=== PATIENT | female | born 1940 | race Caucasian/White ===

== ENCOUNTER 2020-01-11 15:52 | Emergency (ER) | payer MEDICARE, BC ==
[2020-01-11 16:07] VITALS: BP 149/78; PULSE 78
--- NOTE | 2020-01-11 17:02 | CT ---
Head CT Technique: Multiple axial sections through the brain were obtained. Intravenous contrast was not utilized. Comparison: No previous intracranial imaging is available. Findings: Ventricles along with basal cisterns and sulci over the convexities are moderately prominent. Mild atherosclerotic calcification is seen within the carotid siphon. No abnormal parenchymal densities are seen. No evidence of intracranial hemorrhage. No midline shift or mass-effect is seen. Bone window settings were reviewed. Visualized paranasal sinuses and mastoid sinuses show nothing acute. No acute calvarial finding is appreciated. Impression: 1. Generalized atrophy. 2. Nothing acute is appreciated on noncontrast head CT exam. Diagnostic code #2 This report was dictated in MDT
[2020-01-11 17:45] LABS: ACETAMINOPHEN 0 ug/mL (10-30)
--- NOTE | 2020-01-11 18:17 | EDM.PDOCBH ---
ED HPI GENERAL MEDICAL PROBLEM - General Chief Complaint: Behavioral/Psych Stated Complaint: MENTAL HEALTH EVALUATION Time Seen by Provider: 01/11/20 15:55 Source of Information: Reports: Patient, Family, Provider History Limitations: Reports: No Limitations - History of Present Illness INITIAL COMMENTS - FREE TEXT/NARRATIVE: The patient presents from Dr Owen's office with her family. She has been having auditory hallucinations. This has been going on for years. She says they are negative but do not tell her to kill herself or anyone else. She also has been paranoid and thinking hairdressers and doctors put things in her head and body so she avoids them. Dr Owen says she is very intelligent and will hide this. The patient did admit to the auditory hallucinations. She also has been getting in some fights with her and locked him out of the house at times. All of her children are in town and they think she needs help. Dr Owen did paperwork to have her come over here. She denies a headache, fever, chills, cough, congestion, runny nose, chest pain, shortness of breath, abdominal pain, nausea or vomiting. She denies depression or anxiety. Onset: Gradual Duration: Week(s): Severity: Moderate Improves with: Reports: None Worsens with: Reports: None Associated Symptoms: Reports: No Other Symptoms - Related Data Allergies Allergy/AdvReac Type Severity Reaction Status Date / Time Penicillins Allergy Rash Verified 01/11/20 16:23 Past Medical History HEENT History: Reports: Impaired Vision Social & Family History - Tobacco Use Smoking Status *Q: Never Smoker ED ROS GENERAL - Review of Systems Review Of Systems: See Below Constitutional: Reports: No Symptoms HEENT: Reports: No Symptoms Respiratory: Reports: No Symptoms Cardiovascular: Reports: No Symptoms Endocrine: Reports: No Symptoms GI/Abdominal: Reports: No Symptoms : Reports: No Symptoms Musculoskeletal: Reports: No Symptoms Skin: Reports: No Symptoms Neurological: Reports: No Symptoms Psychiatric: Reports: Hallucinations ED EXAM, BEHAVIORAL HEALTH - Physical Exam Exam: See Below Exam Limited By: No Limitations General Appearance: Alert, No Apparent Distress Ears: Normal External Exam Nose: Normal Inspection Head: Atraumatic, Normocephalic Neck: Normal Inspection Respiratory/Chest: No Respiratory Distress, Lungs Clear, Normal Breath Sounds Cardiovascular: Regular Rate, Rhythm, No Edema, No Murmur GI/Abdominal: Soft, Non-Tender, No Organomegaly, No Mass Back Exam: Normal Inspection Extremities: Normal Inspection Neurological: Alert, No Motor/Sensory Deficits, Oriented x 3 COURSE, BEHAVIORAL HEALTH COMP - Course Vital Signs: Last Vital Signs Temp 98.3 F 01/11/20 16:06 Pulse 78 01/11/20 16:06 Resp 18 01/11/20 16:06 BP 149/78 H 01/11/20 16:06 Pulse Ox 97 01/11/20 16:06 Orders, Labs, Meds: Active Orders 24 hr Category Date Time Status Cardiac Monitoring [RC] . DIRECTED Care 01/11/20 16:20 Active Laboratory Tests 01/11/20 01/11/20 01/11/20 Range/Units 16:45 16:45 16:45 WBC 7.56 (3.98-10.04) K/mm3 RBC 4.15 (3.98-5.22) M/mm3 Hgb 13.6 (11.2-15.7) gm/dl Hct 40.6 (34.1-44.9) % MCV 97.8 H D (79.4-94.8) fl MCH 32.8 H (25.6-32.2) pg MCHC 33.5 (32.2-35.5) g/dl RDW Std Deviation 46.1 (36.4-46.3) fL Plt Count 241 (182-369) K/mm3 MPV 10.6 (9.4-12.3) fl Neut % (Auto) 66.1 (34.0-71.1) % Lymph % (Auto) 24.1 (19.3-51.7) % [place] % (Auto) 8.7 (4.7-12.5) % Eos % (Auto) 0.7 (0.7-5.8) Baso % (Auto) 0.3 (0.1-1.2) % Neut # (Auto) 5.00 (1.56-6.13) K/mm3 Lymph # (Auto) 1.82 (1.18-3.74) K/mm3 [place] # (Auto) 0.66 H (0.24-0.36) K/mm3 Eos # (Auto) 0.05 (0.04-0.36) K/mm3 Baso # (Auto) 0.02 (0.01-0.08) K/mm3 Sodium 138 (136-145) mEq/L Potassium 4.3 (3.5-5.1) mEq/L Chloride 103 (98-107) mEq/L Carbon Dioxide 26 (21-32) mEq/L Anion Gap 13.3 (5-15) BUN 27 H (7-18) mg/dL Creatinine 0.8 (0.55-1.02) mg/dL Est Cr Clr Drug Dosing 45.84 mL/min Estimated GFR (MDRD) > 60 (>60) mL/min BUN/Creatinine Ratio 33.8 H (14-18) Glucose 94 (83-115) mg/dL Calcium 8.7 (8.5-10.1) mg/dL Total Bilirubin 0.4 (0.2-1.0) mg/dL AST 18 (15-37) U/L ALT 27 (14-59) U/L Alkaline Phosphatase 56 (46-116) U/L Total Protein 6.5 (6.4-8.2) g/dl Albumin 3.5 (3.4-5.0) g/dl Globulin 3.0 gm/dL Albumin/Globulin Ratio 1.2 (1-2) TSH 3rd Generation 2.279 (0.358-3.74) uIU/mL Urine Color (Yellow) Urine Appearance (Clear) Urine pH (5.0-8.0) Ur Specific [place] (1.005-1.030) Urine Protein (Negative) Urine Glucose (UA) (Negative) Urine Ketones (Negative) Urine Occult Blood (Negative) Urine Nitrite (Negative) Urine Bilirubin (Negative) Urine Urobilinogen (0.2-1.0) Ur Leukocyte Esterase (Negative) Urine RBC (0-5) /hpf Urine WBC (0-5) /hpf Ur Squamous Epith Cells (0-5) /hpf Urine Bacteria (FEW) /hpf Urine Mucus (FEW) /hpf Salicylates 1.6 L (2.8-20) mg/dL Urine Opiates Screen (OAQJSD=203) Ur Buprenorphine Scrn (CUTOFF=10) Ur Oxycodone Screen (TOE0IQ=518) Urine Methadone Screen (HCKYBW=861) Ur Propoxyphene Screen (RRYCDX=975) Acetaminophen 0 L (10-30) ug/mL Ur Barbiturates Screen (CAOFKM=202) Ur Tricyclics Screen (RCWODR=436) Ur Phencyclidine Scrn (CUTOFF=25) Ur Amphetamine Screen (MSXEKU=614) U Methamphetamines Scrn (WZDRAU=370) U Benzodiazepines Scrn (OGTJIF=295) U Cocaine Metab Screen (JUMXUK=315) U Marijuana (THC) Screen (CUTOFF=50) Ethyl Alcohol 0.00 (0.00) gm% COVID-19 (MARYURI) (NEGATIVE) 01/11/20 01/11/20 01/11/20 Range/Units 16:55 16:55 17:05 WBC (3.98-10.04) K/mm3 RBC (3.98-5.22) M/mm3 Hgb (11.2-15.7) gm/dl Hct (34.1-44.9) % MCV (79.4-94.8) fl MCH (25.6-32.2) pg MCHC (32.2-35.5) g/dl RDW Std Deviation (36.4-46.3) fL Plt Count (182-369) K/mm3 MPV (9.4-12.3) fl Neut % (Auto) (34.0-71.1) % Lymph % (Auto) (19.3-51.7) % [place] % (Auto) (4.7-12.5) % Eos % (Auto) (0.7-5.8) Baso % (Auto) (0.1-1.2) % Neut # (Auto) (1.56-6.13) K/mm3 Lymph # (Auto) (1.18-3.74) K/mm3 [place] # (Auto) (0.24-0.36) K/mm3 Eos # (Auto) (0.04-0.36) K/mm3 Baso # (Auto) (0.01-0.08) K/mm3 Sodium (136-145) mEq/L Potassium (3.5-5.1) mEq/L Chloride (98-107) mEq/L Carbon Dioxide (21-32) mEq/L Anion Gap (5-15) BUN (7-18) mg/dL Creatinine (0.55-1.02) mg/dL Est Cr Clr Drug Dosing mL/min Estimated GFR (MDRD) (>60) mL/min BUN/Creatinine Ratio (14-18) Glucose (83-115) mg/dL Calcium (8.5-10.1) mg/dL Total Bilirubin (0.2-1.0) mg/dL AST (15-37) U/L ALT (14-59) U/L Alkaline Phosphatase (46-116) U/L Total Protein (6.4-8.2) g/dl Albumin (3.4-5.0) g/dl Globulin gm/dL Albumin/Globulin Ratio (1-2) TSH 3rd Generation (0.358-3.74) uIU/mL Urine Color Light yellow (Yellow) Urine Appearance Clear (Clear) Urine pH 7.0 (5.0-8.0) Ur Specific [place] 1.015 (1.005-1.030) Urine Protein Negative (Negative) Urine Glucose (UA) Negative (Negative) Urine Ketones Negative (Negative) Urine Occult Blood Trace-intact H (Negative) Urine Nitrite Negative (Negative) Urine Bilirubin Negative (Negative) Urine Urobilinogen 0.2 (0.2-1.0) Ur Leukocyte Esterase Trace H (Negative) Urine RBC 0-5 (0-5) /hpf Urine WBC 0-5 (0-5) /hpf Ur Squamous Epith Cells 0-5 (0-5) /hpf Urine Bacteria Not seen (FEW) /hpf Urine Mucus Not seen (FEW) /hpf Salicylates (2.8-20) mg/dL Urine Opiates Screen Negative (RSKUOS=305) Ur Buprenorphine Scrn Negative (CUTOFF=10) Ur Oxycodone Screen Negative (CRI8OI=500) Urine Methadone Screen Negative (TDVDGK=562) Ur Propoxyphene Screen Negative (OUTOBZ=772) Acetaminophen (10-30) ug/mL Ur Barbiturates Screen Negative (XYURVB=311) Ur Tricyclics Screen Negative (LMVAJU=200) Ur Phencyclidine Scrn Negative (CUTOFF=25) Ur Amphetamine Screen Negative (PQKXVL=393) U Methamphetamines Scrn Negative (EMCTAQ=714) U Benzodiazepines Scrn Negative (AZENQI=705) U Cocaine Metab Screen Negative (JGVZLB=573) U Marijuana (THC) Screen Negative (CUTOFF=50) Ethyl Alcohol (0.00) gm% COVID-19 (MARYURI) Negative (NEGATIVE) Re-Assessment/Re-Exam: I ordered a CT of her head, labs, UDS and UA. The CT of her head shows nothing acute. Her labs all look good. Her UDS is negative. Her ETOH is 0. I called [facility] in [place] and talked with Dr Mcdaniel and he accepted the patient. She will be transported by [facility] deputy. Departure - Departure Time of Disposition: 18:20 Disposition: DC/Tfer to Psych Hosp/Unit [facility] Condition: Fair Clinical Impression: Hallucinations, Paranoid - Discharge Information Referrals: PCP,None [Primary Care Provider] - Sepsis Event Note (ED) - Evaluation Sepsis Screening Result: No Definite Risk - Focused Exam Vital Signs: Vital Signs Temp Pulse Resp BP Pulse Ox 01/11/20 16:06 98.3 F 78 18 149/78 H 97 - My Orders Last 24 Hours: My Active Orders 01/11/20 16:20 Cardiac Monitoring [RC] . DIRECTED - Assessment/Plan Last 24 Hours: My Active Orders 01/11/20 16:20 Cardiac Monitoring [RC] . DIRECTED
== END 2020-01-11 18:54 ==
LOC: JD.ED 15:52
DX: F22 Delusional disorders (principal); Z20.828 Contact with and (suspected) exposure to other viral communicable diseases; Z88.0 Allergy status to penicillin
CPT/HCPCS: 36415; 70450; 80053; 80306; 80307; 81001; 84443; 85025; 99285; U0002; 99284

== ENCOUNTER 2020-10-18 17:36 | Inpatient (IN) | payer MEDICARE, BC ==
[2020-10-18] MEDS ORDERED: Sodium Chloride 0.9% 10 ML Syringe FLUSH PRN (17:55)
[2020-10-18] MEDS ORDERED: Sodium Chloride 0.9% 1,000 ML IV SCH (18:00)
[2020-10-18] MEDS ORDERED: Etomidate 2 MG/ML 20 ML SDV IVPUSH ONE (18:00)
[2020-10-18] MEDS ORDERED: Rocuronium 50 MG/5 ML Vial IVPUSH ONE (18:03)
--- NOTE | 2020-10-18 18:26 | EDM.PDOC ---
ED HPI GENERAL MEDICAL PROBLEM - General Chief Complaint: Neurological Problem Stated Complaint: [facility] Time Seen by Provider: 10/18/20 17:55 Source of Information: Reports: EMS, Family, Police History Limitations: Reports: Altered Mental Status - History of Present Illness INITIAL COMMENTS - FREE TEXT/NARRATIVE: The patient presents by [facility] because she is unresponsive. Police were called to her house for a welfare check. Her family all lives out of town. She last talked to one of her sons last Wednesday. She said she had some neck pain from working in the garage and some fatigue from the heat. She left a message later and said she was sitting in the house nauseated and she had a bucket in case she throws up. Another son tried calling her on Wednesday and she did not responds. According to her children. She recently had a UTI and was being treated for that. She also was complaining her feet were swelling. She was in the [employer] program 2 months ago where they came to her house to check on her. She did not have many health problems. Her daughter said she did have a history of some vaginal bleeding. The patient did come in with some vaginal bleeding. The police found her in the couch leaning on the arm. Police thought she may be and called EMS. When EMS arrived she had aginal breathing and had a pulse. She would not respond. Her GCS was 3. Onset: Gradual Duration: Other (unkown last time heard from was Wednesday) Improves with: Reports: None Worsens with: Reports: None Associated Symptoms: Reports: Other (unable to obtain) - Related Data Allergies Allergy/AdvReac Type Severity Reaction Status Date / Time Penicillins Allergy Rash Verified 01/11/20 16:23 Home Meds: Home Meds . [Unable to Verify Home Med List] 10/18/20 [History] Past Medical History HEENT History: Reports: Impaired Vision ED ROS GENERAL - Review of Systems Review Of Systems: Unable To Obtain Reason Not Obtained: patient unrsponsive ED EXAM, NEURO - Physical Exam Exam: See Below Exam Limited By: Altered Mental Status General Appearance: Obtunded Ears: Normal External Exam Nose: Normal Inspection Head Exam: Atraumatic, Normocephalic Neck: Other (ecchymosis to the posterior neck) Respiratory/Chest: No Respiratory Distress, Lungs Clear, Normal Breath Sounds Cardiovascular: Regular Rate, Rhythm, No Murmur, Other (bilateral leg edema and ecchymosis to the left chest) GI/Abdominal: Normal Bowel Sounds, Soft, Non-Tender, No Organomegaly Neurological: Other (Patient had a GCS of 3. That improved to a 6 before intubation. She would not open her eyes. She had no verbal response. She did withdraw from pain.) Extremities: Other (ecchymosis to her left arm) ED NEURO PROCEDURES - Endotracheal Intubation Time of Intubation: 18:05 ET Intubation Indication: Respiratory Failure, Airway Protection Preparation: Suction, Balloon Tested, BVM Set Up, Difficult Airway Equip Pre-Oxygenation: 100% FiO2 Anesthesia Meds: Etomidate, Rocuronium Placement: Orotracheal, Cuffed, Uncomplicated Placement Cords Visualized: Yes ETT Size In mm: 7.5 Number of Attempts: 1 Confirmed By: CO2 Indicator, Bilateral Breath Sounds Tube Secured By: By RT #1 Interpretation EKG Date: 10/18/20 Time: 18:29 Rhythm: NSR Rate (Beats/Min): 93 [place]: Normal P-Wave: Present QRS: Normal ST-T: Normal QT: Normal Course - Vital Signs Last Recorded V/S: Last Vital Signs Temp 98.2 F 10/18/20 17:40 Pulse 92 10/18/20 18:21 Resp 18 10/18/20 18:21 BP 128/70 10/18/20 18:21 Pulse Ox 99 10/18/20 18:21 - Orders/Labs/Meds Orders: Active Orders 24 hr Category Date Time Status Cardiac Monitoring [RC] . DIRECTED Care 10/18/20 17:55 Active EKG Documentation Completion [RC] STAT Care 10/18/20 17:57 Active Peripheral IV Care [RC] . DIRECTED Care 10/18/20 17:55 Active Vent Setting Change [Ventilator Setting Changes] [RC] Care 10/18/20 18:25 Active ROUTINE CULTURE BLOOD [BC] Stat Lab 10/18/20 18:30 Received CULTURE BLOOD [BC] Stat Lab 10/18/20 18:44 Received Sodium Chloride 0.9% [Normal Saline] 1,000 ml Med 10/18/20 18:00 Active IV .BOLUS Sodium Chloride 0.9% [Saline Flush] Med 10/18/20 17:55 Active 10 ml FLUSH ASDIRECTED PRN Blood Culture x2 Reflex Set [OM.PC] Stat Oth 10/18/20 17:58 Ordered Peripheral IV Insertion Adult [OM.PC] Stat Oth 10/18/20 17:55 Ordered Medication Orders Sodium Chloride (Normal Saline) 1,000 mls @ 1,000 mls/hr IV .BOLUS BINA Last Admin: 10/18/20 18:28 Dose: 1,000 mls/hr Documented by: SUZE Sodium Chloride (Sodium Chloride 0.9% 10 Ml Syringe) 10 ml FLUSH ASDIRECTED PRN PRN Reason: Keep Vein Open Last Admin: 10/18/20 18:28 Dose: 10 ml Documented by: SUZE Labs: Laboratory Tests 10/18/20 10/18/20 10/18/20 Range/Units 17:45 17:50 17:50 WBC 17.71 H (3.98-10.04) K/mm3 RBC 4.71 (3.98-5.22) M/mm3 Hgb 14.9 (11.2-15.7) gm/dl Hct 46.0 H (34.1-44.9) % MCV 97.7 H (79.4-94.8) fl MCH 31.6 (25.6-32.2) pg MCHC 32.4 (32.2-35.5) g/dl RDW Std Deviation 49.8 H (36.4-46.3) fL Plt Count 148 L D (182-369) K/mm3 MPV 10.8 (9.4-12.3) fl Neut % (Auto) 83.4 H (34.0-71.1) % Lymph % (Auto) 6.0 L (19.3-51.7) % Wells % (Auto) 10.1 (4.7-12.5) % Eos % (Auto) 0 L (0.7-5.8) Baso % (Auto) 0.1 (0.1-1.2) % Neut # (Auto) 14.78 H (1.56-6.13) K/mm3 Lymph # (Auto) 1.06 L (1.18-3.74) K/mm3 Wells # (Auto) 1.78 H (0.24-0.36) K/mm3 Eos # (Auto) 0.00 L (0.04-0.36) K/mm3 Baso # (Auto) 0.02 (0.01-0.08) K/mm3 Manual Slide Review Abnormal smear PT 12.6 H (9.7-12.0) SECONDS INR 1.18 APTT 25.4 (21.7-31.4) SECONDS Puncture Site ABG pH (7.35-7.45) ABG pCO2 (35.0-45.0) mmHg ABG pO2 (80.0-100.0) mmHg ABG HCO3 (22.0-26.0) meq/L ABG O2 Saturation (96.0-97.0) % ABG Base Excess (-2-2.0) A-a Gradient mmHg O2 Delivery Device FiO2 (21.00-100.00) % Tidal Volume cc PEEP cmH20 Sodium (136-145) mEq/L Potassium (3.5-5.1) mEq/L Chloride (98-107) mEq/L Carbon Dioxide (21-32) mEq/L Anion Gap (5-15) BUN (7-18) mg/dL Creatinine (0.55-1.02) mg/dL Est Cr Clr Drug Dosing Estimated GFR (MDRD) (>60) mL/min BUN/Creatinine Ratio (14-18) Glucose (70-99) mg/dL Lactic Acid (0.4-2.0) mmol/L Calcium (8.5-10.1) mg/dL Magnesium (1.8-2.4) mg/dL Total Bilirubin (0.2-1.0) mg/dL AST (15-37) U/L ALT (14-59) U/L Alkaline Phosphatase (46-116) U/L Creatine Kinase (26-192) U/L Troponin I (0.00-0.056) ng/mL C-Reactive Protein (<1.0) mg/dL Total Protein (6.4-8.2) g/dl Albumin (3.4-5.0) g/dl Globulin gm/dL Albumin/Globulin Ratio (1-2) Lipase (73-393) U/L TSH 3rd Generation (0.358-3.74) uIU/mL Urine Color (Yellow) Urine Appearance (Clear) Urine pH (5.0-8.0) Ur Specific [place] (1.005-1.030) Urine Protein (Negative) Urine Glucose (UA) (Negative) Urine Ketones (Negative) Urine Occult Blood (Negative) Urine Nitrite (Negative) Urine Bilirubin (Negative) Urine Urobilinogen (0.2-1.0) Ur Leukocyte Esterase (Negative) Urine RBC (0-5) /hpf Urine WBC (0-5) /hpf Ur Squamous Epith Cells (0-5) /hpf Urine Bacteria (FEW) /hpf Urine Mucus (FEW) /hpf Urine Opiates Screen (DKKKYT=166) Ur Buprenorphine Scrn (CUTOFF=10) Ur Oxycodone Screen (NZQ5KJ=803) Urine Methadone Screen (FTQXII=046) Ur Propoxyphene Screen (DARSIA=805) Ur Barbiturates Screen (PROVIB=991) Ur Tricyclics Screen (ZRESXO=252) Ur Phencyclidine Scrn (CUTOFF=25) Ur Amphetamine Screen (PHXYCS=557) U Methamphetamines Scrn (XGRNDA=521) U Benzodiazepines Scrn (ZCNGRP=375) U Cocaine Metab Screen (YLYAVQ=508) U Marijuana (THC) Screen (CUTOFF=50) Ethyl Alcohol (0.00) gm% SARS-CoV-2 RNA (MARYURI) Negative (NEGATIVE) 10/18/20 10/18/20 10/18/20 Range/Units 17:50 17:50 17:50 WBC (3.98-10.04) K/mm3 RBC (3.98-5.22) M/mm3 Hgb (11.2-15.7) gm/dl Hct (34.1-44.9) % MCV (79.4-94.8) fl MCH (25.6-32.2) pg MCHC (32.2-35.5) g/dl RDW Std Deviation (36.4-46.3) fL Plt Count (182-369) K/mm3 MPV (9.4-12.3) fl Neut % (Auto) (34.0-71.1) % Lymph % (Auto) (19.3-51.7) % Wells % (Auto) (4.7-12.5) % Eos % (Auto) (0.7-5.8) Baso % (Auto) (0.1-1.2) % Neut # (Auto) (1.56-6.13) K/mm3 Lymph # (Auto) (1.18-3.74) K/mm3 Wells # (Auto) (0.24-0.36) K/mm3 Eos # (Auto) (0.04-0.36) K/mm3 Baso # (Auto) (0.01-0.08) K/mm3 Manual Slide Review PT (9.7-12.0) SECONDS INR APTT (21.7-31.4) SECONDS Puncture Site ABG pH (7.35-7.45) ABG pCO2 (35.0-45.0) mmHg ABG pO2 (80.0-100.0) mmHg ABG HCO3 (22.0-26.0) meq/L ABG O2 Saturation (96.0-97.0) % ABG Base Excess (-2-2.0) A-a Gradient mmHg O2 Delivery Device FiO2 (21.00-100.00) % Tidal Volume cc PEEP cmH20 Sodium 152 H D (136-145) mEq/L Potassium 4.1 (3.5-5.1) mEq/L Chloride 112 H (98-107) mEq/L Carbon Dioxide 28 (21-32) mEq/L Anion Gap 16.1 H (5-15) BUN 80 H D (7-18) mg/dL Creatinine 1.9 H (0.55-1.02) mg/dL Est Cr Clr Drug Dosing TNP Estimated GFR (MDRD) 26 (>60) mL/min BUN/Creatinine Ratio 42.1 H (14-18) Glucose 115 H (70-99) mg/dL Lactic Acid 2.0 (0.4-2.0) mmol/L Calcium 14.2 H* D (8.5-10.1) mg/dL Magnesium 3.1 H (1.8-2.4) mg/dL Total Bilirubin 0.5 (0.2-1.0) mg/dL AST 29 (15-37) U/L ALT 27 (14-59) U/L Alkaline Phosphatase 88 (46-116) U/L Creatine Kinase 237 H (26-192) U/L Troponin I 0.304 H* (0.00-0.056) ng/mL C-Reactive Protein 6.1 H* (<1.0) mg/dL Total Protein 6.8 (6.4-8.2) g/dl Albumin 3.3 L (3.4-5.0) g/dl Globulin 3.5 gm/dL Albumin/Globulin Ratio 0.9 L (1-2) Lipase 43 L (73-393) U/L TSH 3rd Generation 1.135 (0.358-3.74) uIU/mL Urine Color (Yellow) Urine Appearance (Clear) Urine pH (5.0-8.0) Ur Specific [place] (1.005-1.030) Urine Protein (Negative) Urine Glucose (UA) (Negative) Urine Ketones (Negative) Urine Occult Blood (Negative) Urine Nitrite (Negative) Urine Bilirubin (Negative) Urine Urobilinogen (0.2-1.0) Ur Leukocyte Esterase (Negative) Urine RBC (0-5) /hpf Urine WBC (0-5) /hpf Ur Squamous Epith Cells (0-5) /hpf Urine Bacteria (FEW) /hpf Urine Mucus (FEW) /hpf Urine Opiates Screen Negative (BABPJD=868) Ur Buprenorphine Scrn Negative (CUTOFF=10) Ur Oxycodone Screen Negative (XFD6QZ=946) Urine Methadone Screen Negative (FZEBNF=652) Ur Propoxyphene Screen Negative (VRWKNX=505) Ur Barbiturates Screen Negative (DDFTIF=131) Ur Tricyclics Screen Negative (UZHMSG=512) Ur Phencyclidine Scrn Negative (CUTOFF=25) Ur Amphetamine Screen Negative (SMZFZQ=593) U Methamphetamines Scrn Negative (CNMZTO=636) U Benzodiazepines Scrn Negative (GWWRIC=473) U Cocaine Metab Screen Negative (NQQWSO=320) U Marijuana (THC) Screen Negative (CUTOFF=50) Ethyl Alcohol 0.00 (0.00) gm% SARS-CoV-2 RNA (MARYURI) (NEGATIVE) 10/18/20 10/18/20 Range/Units 17:58 18:52 WBC (3.98-10.04) K/mm3 RBC (3.98-5.22) M/mm3 Hgb (11.2-15.7) gm/dl Hct (34.1-44.9) % MCV (79.4-94.8) fl MCH (25.6-32.2) pg MCHC (32.2-35.5) g/dl RDW Std Deviation (36.4-46.3) fL Plt Count (182-369) K/mm3 MPV (9.4-12.3) fl Neut % (Auto) (34.0-71.1) % Lymph % (Auto) (19.3-51.7) % Wells % (Auto) (4.7-12.5) % Eos % (Auto) (0.7-5.8) Baso % (Auto) (0.1-1.2) % Neut # (Auto) (1.56-6.13) K/mm3 Lymph # (Auto) (1.18-3.74) K/mm3 [place] # (Auto) (0.24-0.36) K/mm3 Eos # (Auto) (0.04-0.36) K/mm3 Baso # (Auto) (0.01-0.08) K/mm3 Manual Slide Review PT (9.7-12.0) SECONDS INR APTT (21.7-31.4) SECONDS Puncture Site Rt radial ABG pH 7.43 (7.35-7.45) ABG pCO2 44.6 (35.0-45.0) mmHg ABG pO2 55.0 L (80.0-100.0) mmHg ABG HCO3 28.8 H (22.0-26.0) meq/L ABG O2 Saturation 87.9 L (96.0-97.0) % ABG Base Excess 4.2 H (-2-2.0) A-a Gradient 210 mmHg O2 Delivery Device Ventilator FiO2 45.00 (21.00-100.00) % Tidal Volume 450.0 cc PEEP 5.0 cmH20 Sodium (136-145) mEq/L Potassium (3.5-5.1) mEq/L Chloride (98-107) mEq/L Carbon Dioxide (21-32) mEq/L Anion Gap (5-15) BUN (7-18) mg/dL Creatinine (0.55-1.02) mg/dL Est Cr Clr Drug Dosing Estimated GFR (MDRD) (>60) mL/min BUN/Creatinine Ratio (14-18) Glucose (70-99) mg/dL Lactic Acid (0.4-2.0) mmol/L Calcium (8.5-10.1) mg/dL Magnesium (1.8-2.4) mg/dL Total Bilirubin (0.2-1.0) mg/dL AST (15-37) U/L ALT (14-59) U/L Alkaline Phosphatase (46-116) U/L Creatine Kinase (26-192) U/L Troponin I (0.00-0.056) ng/mL C-Reactive Protein (<1.0) mg/dL Total Protein (6.4-8.2) g/dl Albumin (3.4-5.0) g/dl Globulin gm/dL Albumin/Globulin Ratio (1-2) Lipase (73-393) U/L TSH 3rd Generation (0.358-3.74) uIU/mL Urine Color Yellow (Yellow) Urine Appearance Clear (Clear) Urine pH 6.0 (5.0-8.0) Ur Specific [place] > or = 1.030 (1.005-1.030) Urine Protein 1+ H (Negative) Urine Glucose (UA) Negative (Negative) Urine Ketones Negative (Negative) Urine Occult Blood 2+ H (Negative) Urine Nitrite Positive H (Negative) Urine Bilirubin Negative (Negative) Urine Urobilinogen 0.2 (0.2-1.0) Ur Leukocyte Esterase 1+ H (Negative) Urine RBC 5-10 H (0-5) /hpf Urine WBC 20-30 H (0-5) /hpf Ur Squamous Epith Cells 0-5 (0-5) /hpf Urine Bacteria Moderate H (FEW) /hpf Urine Mucus Not seen (FEW) /hpf Urine Opiates Screen (EBIKNI=894) Ur Buprenorphine Scrn (CUTOFF=10) Ur Oxycodone Screen (UQU3LG=016) Urine Methadone Screen (WEEPIC=034) Ur Propoxyphene Screen (EPEGQH=497) Ur Barbiturates Screen (GDDWEP=019) Ur Tricyclics Screen (MNPZLS=780) Ur Phencyclidine Scrn (CUTOFF=25) Ur Amphetamine Screen (HYPWVR=353) U Methamphetamines Scrn (TZESRW=765) U Benzodiazepines Scrn (UAGDSC=816) U Cocaine Metab Screen (MZQSPH=553) U Marijuana (THC) Screen (CUTOFF=50) Ethyl Alcohol (0.00) gm% SARS-CoV-2 RNA (MARYURI) (NEGATIVE) Meds: Medications Generic Name Dose Route Start Last Admin Trade Name Freq PRN Reason Stop Dose Admin Sodium Chloride 1,000 mls @ 1,000 mls/hr 10/18/20 18:00 10/18/20 18:28 Normal Saline IV 1,000 mls/hr .BOLUS BINA Administration Sodium Chloride 10 ml 10/18/20 17:55 10/18/20 18:28 Sodium Chloride 0.9% 10 Ml Syringe FLUSH 10 ml ASDIRECTED PRN Administration Keep Vein Open Discontinued Medications Generic Name Dose Route Start Last Admin Trade Name Arabella PRN Reason Stop Dose Admin Etomidate 25 mg 10/18/20 18:00 10/18/20 18:27 Etomidate 2 Mg/Ml 20 Ml Sdv IVPUSH 10/18/20 18:01 25 mg ONETIME ONE Administration Ceftriaxone Sodium 2 gm/ 100 mls @ 200 mls/hr 10/18/20 19:06 Sodium Chloride IV 10/18/20 19:35 ONETIME ONE Rocuronium [place] 70 mg 10/18/20 18:03 10/18/20 18:28 Rocuronium 50 Mg/5 Ml Vial IVPUSH 10/18/20 18:04 70 mg ONETIME ONE Administration - Re-Assessments/Exams Free Text/Narrative Re-Assessment/Exam: 10/18/20 18:41 I elected to intubate the patient. She had a slow respiratory rate and unr esponsive. I had my nurse put in an IV and give NS at 1L. I also ordered labs, CXR, CT of her head, chest, abdomen and pelvis. I also ordered a UA. I used etomidate and rocuronium for intubation. I was able to intubate without any problems. CXR confirmed the placement along with lung sounds and CO2 detector. 10/18/20 19:44 I called her 3 children right away to update and throughout her stay. I talked with Kaylin Rice and Lamine. Her WBC was elevated at 17.71. Her platelets were low at 148. Her pO2 was low at 55. I upped her FIO2. Her Na was elevated at 152. Her anion gap was e levated at 16.1. Her creatinine is elevated at 1.9. Her lactic acid was normal at 2. Her calcium was elevated at 14.2. Her magnesium is elevated at 3.1. Her CK is elevated at 237. Her troponin is elevated at 0.304. Her CRP is elevated at 6.1. Her lipase is low at 43. Her TSH is normal. Her UA shows a UTI. Her CT of her head shows a large acute hemorrhage within the posterior fossa measuring up to 3.7cm in size. This is felt to cause compression upon the fourth ventricle and hydrocephalus of the lateral and third ventricles. Small amount of blood is also noted which descends anterior to the cervical cord. Diminished density along the lateral ventricles most likely relating to edema from the hydrocephalus. The CT of her chest shows ET tube and nasogastric tube which are felt to be satisfactory in position. Focal consolidation within the left lung base which could represent an area of pneumonia. Nodular densities within both sides of the chest, more numerous on the right side which are noncalcified. These are suspicious for possible metastatic nodules. The CT of her abdomen and pelvis shows enlarged uterus with prominent low density center which is abnormal. Difficult to exclude neoplasm. I sent the images to [facility] and I talked with Dr Shirley the neurosurgeon transmission assembler. He said there is nothing surgical he can do for her. She is going to from the head bleed. I called all three of her children and notified them. They wanted me to keep her on the ventilator until they can get up here and then remove the tube. I called Dr Latham our hospitalist and he agreed to the admission for comfort care. Departure - Departure Time of Disposition: 20:00 Disposition: Admitted As Inpatient 67 Condition: Serious Clinical Impression: Intracranial bleed, Pulmonary nodules, Enlarged uterus Respiratory failure Qualifiers: Chronicity: acute Respiratory failure complication: hypoxia Qualified Code(s): J96.01 - Acute respiratory failure with hypoxia UTI (urinary tract infection) Qualifiers: Urinary tract infection type: acute cystitis Hematuria presence: without hematuria Qualified Code(s): N30.00 - Acute cystitis without hematuria Pneumonia Qualifiers: Pneumonia type: due to unspecified organism Laterality: left Lung location: lower lobe of lung Qualified Code(s): J18.9 - Pneumonia, unspecified organism - Discharge Information Forms: ED Department Discharge Sepsis Event Note (ED) - Focused Exam Vital Signs: Vital Signs Temp Pulse Resp BP Pulse Ox 10/18/20 18:21 92 18 128/70 99 10/18/20 17:52 89 18 76/52 L 99 10/18/20 17:40 98.2 F 80 12 121/109 H 100 - My Orders Last 24 Hours: My Active Orders 10/18/20 17:55 Cardiac Monitoring [RC] . DIRECTED Peripheral IV Care [RC] . DIRECTED Sodium Chloride 0.9% [Saline Flush] 10 ml FLUSH ASDIRECTED PRN Peripheral IV Insertion Adult [OM.PC] Stat 10/18/20 17:57 EKG Documentation Completion [RC] STAT 10/18/20 17:58 Blood Culture x2 Reflex Set [OM.PC] Stat 10/18/20 18:00 Sodium Chloride 0.9% [Normal Saline] 1,000 ml IV .BOLUS 10/18/20 18:25 Vent Setting Change [Ventilator Setting Changes] [RC] ROUTINE 10/18/20 18:30 CULTURE BLOOD [BC] Stat 10/18/20 18:44 CULTURE BLOOD [BC] Stat - Assessment/Plan Last 24 Hours: My Active Orders 10/18/20 17:55 Cardiac Monitoring [RC] . DIRECTED Peripheral IV Care [RC] . DIRECTED Sodium Chloride 0.9% [Saline Flush] 10 ml FLUSH ASDIRECTED PRN Peripheral IV Insertion Adult [OM.PC] Stat 10/18/20 17:57 EKG Documentation Completion [RC] STAT 10/18/20 17:58 Blood Culture x2 Reflex Set [OM.PC] Stat 10/18/20 18:00 Sodium Chloride 0.9% [Normal Saline] 1,000 ml IV .BOLUS 10/18/20 18:25 Vent Setting Change [Ventilator Setting Changes] [RC] ROUTINE 10/18/20 18:30 CULTURE BLOOD [BC] Stat 10/18/20 18:44 CULTURE BLOOD [BC] Stat
--- NOTE | 2020-10-18 18:42 | CR ---
Chest: Portable supine view of the chest was obtained. Study is obtained for tube placement. Comparison: No previous chest imaging is available. Tip of endotracheal tube is difficult to see with certainty on this study but appears to lie above the corin by around 1.7 cm. Nasogastric tube courses through the mediastinum with tip lying within the stomach. Other portions of the exam are somewhat suboptimal in technique and no further comment can be made. Impression: 1. Tip of endotracheal tube difficult to see but most likely above the corin by about 1.7 cm. 2. Satisfactory position of nasogastric tube. Diagnostic code #2
--- NOTE | 2020-10-18 18:51 | CT ---
Head CT Technique: Multiple axial sections through the brain were obtained. Intravenous contrast was not utilized. Reconstructed coronal and sagittal images were obtained. Comparison: No prior intracranial imaging is available. Findings: Large acute hemorrhage is seen within the posterior fossa. This hemorrhage measures approximately 3.7 cm in size. This abnormality compresses the fourth ventricle causing proximal hydronephrosis of the lateral ventricles and third ventricle. There is also blood being seen which descends anterior to the upper cervical cord. Diffuse diminished density is noted within the periventricular white matter which may relate to edema from the hydrocephalus. No midline shift is seen. Bone window settings were reviewed and show no acute calvarial abnormality. Visualized mastoid sinuses and paranasal sinuses show nothing acute. Impression: 1. Large acute hemorrhage within the posterior fossa measuring up to 3.7 cm in size. This is felt to cause compression upon the fourth ventricle and hydrocephalus of the lateral and third ventricles. 2. Small amount of blood is also noted which descends anterior to the cervical cord. 3. Diminished density along the lateral ventricles most likely relating to edema from the hydrocephalus. Diagnostic code #5
--- NOTE | 2020-10-18 19:03 | CT ---
CT chest Technique: Multiple axial sections through the chest were obtained. Intravenous contrast was not utilized. Comparison: No prior chest CT study is available. Findings: Endotracheal tube is seen. Tip terminates slightly above the corin. Nasogastric tube courses through the mediastinum into the stomach. Thoracic aorta shows atherosclerotic calcification without aneurysm. Mediastinum and hilar regions show no adenopathy or mass. Mild coronary artery calcification is noted. Focal consolidation is seen within the left lung base. Several scattered nodular densities are seen within the right lung which do not appear to be calcified. Several small nodules are partially seen within the left chest. These nodules are suspicious for possible metastatic disease. Largest nodule measures approximately 1.2 cm. Bone window setting shows slight degenerative change scattered within the spine. No acute osseous abnormality is appreciated. Impression: 1. Endotracheal tube and nasogastric tube which are felt to be satisfactory in position. 2. Focal consolidation within the left lung base which could represent an area of pneumonia. 3. Nodular densities within both sides of the chest, more numerous on the right side which are noncalcified. These are suspicious for possible metastatic nodules. Diagnostic code #9 CT abdomen and pelvis Technique: Multiple axial sections were obtained from above the dome of the diaphragm inferiorly through the pubic symphysis. Intravenous and oral contrast was not utilized. Reconstructed coronal and sagittal images were obtained. Comparison: No previous abdomen and pelvis CT is available. Findings: Gallbladder is located inferior to the liver if it has not been removed. Liver otherwise shows no focal abnormality. Spleen size is normal. Pancreas shows no discrete abnormality. Kidneys show no abnormal calcifications. Small cyst is noted within the left kidney measuring 1.3 cm. Abdominal aorta shows atherosclerotic change without aneurysm. No retroperitoneal adenopathy is seen. No mesenteric abnormalities are seen. Uterus is enlarged with prominent low density center. Difficult to exclude neoplasm within the uterus. Glynn catheter is noted within the bladder. No pelvic mass or adenopathy is seen. Appendix is not visualized. Bone window setting shows scattered degenerative change within the spine. Mild degenerative change is also seen within both hips. Impression: 1. Enlarged uterus with prominent low density center which is abnormal. Difficult to exclude neoplasm. 2. Other findings as noted above which are likely incidental. Diagnostic code #9
[2020-10-18] MEDS ORDERED: cefTRIAXone 2 GM in Sodium Chloride 0.9% 100 ML IV ONE (19:06)
[2020-10-18] MEDS ORDERED: Ondansetron 4 MG/2 ML SDV IV PRN (20:56)
[2020-10-18] MEDS ORDERED: fentaNYL 2,500 MCG in Sodium Chloride 0.9% 200 ML IV SCH (21:15)
--- NOTE | 2020-10-18 21:17 | PCM.HP.2 ---
H&P History of Present Illness - General Date of Service: 10/18/20 Admit Problem/Dx: Admission Diagnosis/Problem Admission Diagnosis/Problem Intracranial hemorrhage Source of Information: Other (chart) - History of Present Illness Initial Comments - Free Text/Narative: Patient is a 80-year-old female with unknown history who was brought to the ER by EMS due to unresponsiveness. As per ER physician Dr. Jesus's note, none of the family members is local and they all live out of town. Patient last talked to one of her sons last Wednesday. She said at that time that she had a pain from her neck from working in the garage. She left a piece of message, saying she was sitting in the house and feeling nauseated. Another son tried to call her on Wednesday but she did not respond. She has a history of vaginal bleeding. In the ER, she was found to have some vaginal bleeding. In the ER, she did not respond. GCS was 3. CT of head showed large acute hemorrhage within the posterior fossa measuring up to 3.7 cm in size. This is a felt to cause compression of the fourth ventricle and hydrocephalus of the lateral and the third ventricles. Small amount of the blood is also noted which descends anterior to the cervical cord. Diminished density along the lateral ventricle most likely relating to edema from of the hydrocephalus. CT chest showed focal consolidation within the left lung base which could represent an area of pneumonia. Nodular densities within both sides of the chest, more numerous on the right side which are noncalcified. These are suspicious for possible metastatic nodules. CT abdomen and pelvis showed enlarged uterus with a prominent low-density center which is a abnormal. Difficulty to exclude neoplasm. Dr. Jesus discussed the CT of head result with neurosurgeon Dr Shirley at the [facility] in [place] who felt patient is not a candidate for procedure. Dr. Kristina ibanez spoke to all three children, Dwayne, Kaylin and Lamine who agreed with comfort care only. They asked to keep her on ventilator until they get here tomorrow. - Related Data Allergies/Adverse Reactions: Allergies Allergy/AdvReac Type Severity Reaction Status Date / Time Penicillins Allergy Rash Verified 01/11/20 16:23 Home Medications: Home Meds . [Unable to Verify Home Med List] 10/18/20 [History] Past Medical History HEENT History: Reports: Impaired Vision Social & Family History - Tobacco Use Tobacco Use Status *Q: Unknown Ever Used Tobacco - Recreational Drug Use Recreational Drug Use Frequency: Patient Refuses To Answer H&P Review of Systems - Review of Systems: Review Of Systems: Unable To Obtain (Due to unresponsiveness) Reason Not Obtained: Unresponsiveness Exam - Exam Exam: Not Obtained (due to unresponsiveness) - Vital Signs Vital Signs: Last Vital Signs Temp 36.8 C 10/18/20 17:40 Pulse 75 10/18/20 20:14 Resp 14 10/18/20 20:14 BP 100/49 L 10/18/20 20:14 Pulse Ox 88 L 10/18/20 20:14 Weight: 65.771 kg - Exam General: Other (Comatose. Unresponse to pain stimuli) HEENT: Conjunctiva Clear, Pupils Equal (About 2.5mm. Slow/no response to light) Neck: Trachea Midline. No: JVD Lungs: Clear to Auscultation, Other (On ventilator) Cardiovascular: Regular Rate, Regular Rhythm GI/Abdominal Exam: Normal Bowel Sounds, Soft, Other (Palpable solid mass in the lower abdomen) (Female) Exam: Other (Glynn catheter in place) Extremities: Normal Inspection, Pedal Edema (1+) Skin: Dry, Cool, Ecchymosis Neuro Extensive - Mental Status: Other (unresponse to stimuli including pain). No: Withdraws to Pain Psychiatric: Other (Unable to complete due to unresponsiveness) - Patient Data Lab Results Last 24 hrs: Laboratory Results - last 24 hr 10/18/20 10/18/20 10/18/20 Range/Units 17:45 17:50 17:50 WBC 17.71 H (3.98-10.04) K/mm3 RBC 4.71 (3.98-5.22) M/mm3 Hgb 14.9 (11.2-15.7) gm/dl Hct 46.0 H (34.1-44.9) % MCV 97.7 H (79.4-94.8) fl MCH 31.6 (25.6-32.2) pg MCHC 32.4 (32.2-35.5) g/dl RDW Std Deviation 49.8 H (36.4-46.3) fL Plt Count 148 L D (182-369) K/mm3 MPV 10.8 (9.4-12.3) fl Neut % (Auto) 83.4 H (34.0-71.1) % Lymph % (Auto) 6.0 L (19.3-51.7) % Bremer % (Auto) 10.1 (4.7-12.5) % Eos % (Auto) 0 L (0.7-5.8) Baso % (Auto) 0.1 (0.1-1.2) % Neut # (Auto) 14.78 H (1.56-6.13) K/mm3 Lymph # (Auto) 1.06 L (1.18-3.74) K/mm3 Bremer # (Auto) 1.78 H (0.24-0.36) K/mm3 Eos # (Auto) 0.00 L (0.04-0.36) K/mm3 Baso # (Auto) 0.02 (0.01-0.08) K/mm3 Manual Slide Review Abnormal smear PT 12.6 H (9.7-12.0) SECONDS INR 1.18 APTT 25.4 (21.7-31.4) SECONDS Puncture Site ABG pH (7.35-7.45) ABG pCO2 (35.0-45.0) mmHg ABG pO2 (80.0-100.0) mmHg ABG HCO3 (22.0-26.0) meq/L ABG O2 Saturation (96.0-97.0) % ABG Base Excess (-2-2.0) A-a Gradient mmHg O2 Delivery Device FiO2 (21.00-100.00) % Tidal Volume cc PEEP cmH20 Sodium (136-145) mEq/L Potassium (3.5-5.1) mEq/L Chloride (98-107) mEq/L Carbon Dioxide (21-32) mEq/L Anion Gap (5-15) BUN (7-18) mg/dL Creatinine (0.55-1.02) mg/dL Est Cr Clr Drug Dosing Estimated GFR (MDRD) (>60) mL/min BUN/Creatinine Ratio (14-18) Glucose (70-99) mg/dL Lactic Acid (0.4-2.0) mmol/L Calcium (8.5-10.1) mg/dL Magnesium (1.8-2.4) mg/dL Total Bilirubin (0.2-1.0) mg/dL AST (15-37) U/L ALT (14-59) U/L Alkaline Phosphatase (46-116) U/L Creatine Kinase (26-192) U/L Troponin I (0.00-0.056) ng/mL C-Reactive Protein (<1.0) mg/dL Total Protein (6.4-8.2) g/dl Albumin (3.4-5.0) g/dl Globulin gm/dL Albumin/Globulin Ratio (1-2) Lipase (73-393) U/L TSH 3rd Generation (0.358-3.74) uIU/mL Urine Color (Yellow) Urine Appearance (Clear) Urine pH (5.0-8.0) Ur Specific [place] (1.005-1.030) Urine Protein (Negative) Urine Glucose (UA) (Negative) Urine Ketones (Negative) Urine Occult Blood (Negative) Urine Nitrite (Negative) Urine Bilirubin (Negative) Urine Urobilinogen (0.2-1.0) Ur Leukocyte Esterase (Negative) Urine RBC (0-5) /hpf Urine WBC (0-5) /hpf Ur Squamous Epith Cells (0-5) /hpf Urine Bacteria (FEW) /hpf Urine Mucus (FEW) /hpf Urine Opiates Screen (BWUSTI=509) Ur Buprenorphine Scrn (CUTOFF=10) Ur Oxycodone Screen (BIN7GF=229) Urine Methadone Screen (SSOXPO=085) Ur Propoxyphene Screen (SPPHNO=144) Ur Barbiturates Screen (TQPDWC=659) Ur Tricyclics Screen (MJPSUI=331) Ur Phencyclidine Scrn (CUTOFF=25) Ur Amphetamine Screen (IXAETI=640) U Methamphetamines Scrn (NYJRXN=180) U Benzodiazepines Scrn (CEZZMI=227) U Cocaine Metab Screen (CYWCTL=435) U Marijuana (THC) Screen (CUTOFF=50) Ethyl Alcohol (0.00) gm% SARS-CoV-2 RNA (MARYURI) Negative (NEGATIVE) 10/18/20 10/18/20 10/18/20 Range/Units 17:50 17:50 17:50 WBC (3.98-10.04) K/mm3 RBC (3.98-5.22) M/mm3 Hgb (11.2-15.7) gm/dl Hct (34.1-44.9) % MCV (79.4-94.8) fl MCH (25.6-32.2) pg MCHC (32.2-35.5) g/dl RDW Std Deviation (36.4-46.3) fL Plt Count (182-369) K/mm3 MPV (9.4-12.3) fl Neut % (Auto) (34.0-71.1) % Lymph % (Auto) (19.3-51.7) % Bremer % (Auto) (4.7-12.5) % Eos % (Auto) (0.7-5.8) Baso % (Auto) (0.1-1.2) % Neut # (Auto) (1.56-6.13) K/mm3 Lymph # (Auto) (1.18-3.74) K/mm3 Bremer # (Auto) (0.24-0.36) K/mm3 Eos # (Auto) (0.04-0.36) K/mm3 Baso # (Auto) (0.01-0.08) K/mm3 Manual Slide Review PT (9.7-12.0) SECONDS INR APTT (21.7-31.4) SECONDS Puncture Site ABG pH (7.35-7.45) ABG pCO2 (35.0-45.0) mmHg ABG pO2 (80.0-100.0) mmHg ABG HCO3 (22.0-26.0) meq/L ABG O2 Saturation (96.0-97.0) % ABG Base Excess (-2-2.0) A-a Gradient mmHg O2 Delivery Device FiO2 (21.00-100.00) % Tidal Volume cc PEEP cmH20 Sodium 152 H D (136-145) mEq/L Potassium 4.1 (3.5-5.1) mEq/L Chloride 112 H (98-107) mEq/L Carbon Dioxide 28 (21-32) mEq/L Anion Gap 16.1 H (5-15) BUN 80 H D (7-18) mg/dL Creatinine 1.9 H (0.55-1.02) mg/dL Est Cr Clr Drug Dosing TNP Estimated GFR (MDRD) 26 (>60) mL/min BUN/Creatinine Ratio 42.1 H (14-18) Glucose 115 H (70-99) mg/dL Lactic Acid 2.0 (0.4-2.0) mmol/L Calcium 14.2 H* D (8.5-10.1) mg/dL Magnesium 3.1 H (1.8-2.4) mg/dL Total Bilirubin 0.5 (0.2-1.0) mg/dL AST 29 (15-37) U/L ALT 27 (14-59) U/L Alkaline Phosphatase 88 (46-116) U/L Creatine Kinase 237 H (26-192) U/L Troponin I 0.304 H* (0.00-0.056) ng/mL C-Reactive Protein 6.1 H* (<1.0) mg/dL Total Protein 6.8 (6.4-8.2) g/dl Albumin 3.3 L (3.4-5.0) g/dl Globulin 3.5 gm/dL Albumin/Globulin Ratio 0.9 L (1-2) Lipase 43 L (73-393) U/L TSH 3rd Generation 1.135 (0.358-3.74) uIU/mL Urine Color (Yellow) Urine Appearance (Clear) Urine pH (5.0-8.0) Ur Specific [place] (1.005-1.030) Urine Protein (Negative) Urine Glucose (UA) (Negative) Urine Ketones (Negative) Urine Occult Blood (Negative) Urine Nitrite (Negative) Urine Bilirubin (Negative) Urine Urobilinogen (0.2-1.0) Ur Leukocyte Esterase (Negative) Urine RBC (0-5) /hpf Urine WBC (0-5) /hpf Ur Squamous Epith Cells (0-5) /hpf Urine Bacteria (FEW) /hpf Urine Mucus (FEW) /hpf Urine Opiates Screen Negative (YUHCFP=409) Ur Buprenorphine Scrn Negative (CUTOFF=10) Ur Oxycodone Screen Negative (KVM7NA=730) Urine Methadone Screen Negative (BTADTE=793) Ur Propoxyphene Screen Negative (EDOHFH=137) Ur Barbiturates Screen Negative (MJVDIO=336) Ur Tricyclics Screen Negative (PBAQGI=051) Ur Phencyclidine Scrn Negative (CUTOFF=25) Ur Amphetamine Screen Negative (CQQKDP=543) U Methamphetamines Scrn Negative (IUGFBG=430) U Benzodiazepines Scrn Negative (NRDNFD=219) U Cocaine Metab Screen Negative (DARVMJ=572) U Marijuana (THC) Screen Negative (CUTOFF=50) Ethyl Alcohol 0.00 (0.00) gm% SARS-CoV-2 RNA (MARYURI) (NEGATIVE) 10/18/20 10/18/20 Range/Units 17:58 18:52 WBC (3.98-10.04) K/mm3 RBC (3.98-5.22) M/mm3 Hgb (11.2-15.7) gm/dl Hct (34.1-44.9) % MCV (79.4-94.8) fl MCH (25.6-32.2) pg MCHC (32.2-35.5) g/dl RDW Std Deviation (36.4-46.3) fL Plt Count (182-369) K/mm3 MPV (9.4-12.3) fl Neut % (Auto) (34.0-71.1) % Lymph % (Auto) (19.3-51.7) % Bremer % (Auto) (4.7-12.5) % Eos % (Auto) (0.7-5.8) Baso % (Auto) (0.1-1.2) % Neut # (Auto) (1.56-6.13) K/mm3 Lymph # (Auto) (1.18-3.74) K/mm3 Bremer # (Auto) (0.24-0.36) K/mm3 Eos # (Auto) (0.04-0.36) K/mm3 Baso # (Auto) (0.01-0.08) K/mm3 Manual Slide Review PT (9.7-12.0) SECONDS INR APTT (21.7-31.4) SECONDS Puncture Site Rt radial ABG pH 7.43 (7.35-7.45) ABG pCO2 44.6 (35.0-45.0) mmHg ABG pO2 55.0 L (80.0-100.0) mmHg ABG HCO3 28.8 H (22.0-26.0) meq/L ABG O2 Saturation 87.9 L (96.0-97.0) % ABG Base Excess 4.2 H (-2-2.0) A-a Gradient 210 mmHg O2 Delivery Device Ventilator FiO2 45.00 (21.00-100.00) % Tidal Volume 450.0 cc PEEP 5.0 cmH20 Sodium (136-145) mEq/L Potassium (3.5-5.1) mEq/L Chloride (98-107) mEq/L Carbon Dioxide (21-32) mEq/L Anion Gap (5-15) BUN (7-18) mg/dL Creatinine (0.55-1.02) mg/dL Est Cr Clr Drug Dosing Estimated GFR (MDRD) (>60) mL/min BUN/Creatinine Ratio (14-18) Glucose (70-99) mg/dL Lactic Acid (0.4-2.0) mmol/L Calcium (8.5-10.1) mg/dL Magnesium (1.8-2.4) mg/dL Total Bilirubin (0.2-1.0) mg/dL AST (15-37) U/L ALT (14-59) U/L Alkaline Phosphatase (46-116) U/L Creatine Kinase (26-192) U/L Troponin I (0.00-0.056) ng/mL C-Reactive Protein (<1.0) mg/dL Total Protein (6.4-8.2) g/dl Albumin (3.4-5.0) g/dl Globulin gm/dL Albumin/Globulin Ratio (1-2) Lipase (73-393) U/L TSH 3rd Generation (0.358-3.74) uIU/mL Urine Color Yellow (Yellow) Urine Appearance Clear (Clear) Urine pH 6.0 (5.0-8.0) Ur Specific [place] > or = 1.030 (1.005-1.030) Urine Protein 1+ H (Negative) Urine Glucose (UA) Negative (Negative) Urine Ketones Negative (Negative) Urine Occult Blood 2+ H (Negative) Urine Nitrite Positive H (Negative) Urine Bilirubin Negative (Negative) Urine Urobilinogen 0.2 (0.2-1.0) Ur Leukocyte Esterase 1+ H (Negative) Urine RBC 5-10 H (0-5) /hpf Urine WBC 20-30 H (0-5) /hpf Ur Squamous Epith Cells 0-5 (0-5) /hpf Urine Bacteria Moderate H (FEW) /hpf Urine Mucus Not seen (FEW) /hpf Urine Opiates Screen (FAYPGU=161) Ur Buprenorphine Scrn (CUTOFF=10) Ur Oxycodone Screen (WAO6PE=242) Urine Methadone Screen (QINDUL=235) Ur Propoxyphene Screen (FLAMOE=432) Ur Barbiturates Screen (ECORWC=961) Ur Tricyclics Screen (JSRDLD=781) Ur Phencyclidine Scrn (CUTOFF=25) Ur Amphetamine Screen (RXVUWT=548) U Methamphetamines Scrn (XKJDDA=036) U Benzodiazepines Scrn (LWJSYG=105) U Cocaine Metab Screen (NJNTUQ=866) U Marijuana (THC) Screen (CUTOFF=50) Ethyl Alcohol (0.00) gm% SARS-CoV-2 RNA (MARYURI) (NEGATIVE) Result Diagrams: 10/18/20 17:50 10/18/20 17:50 Sepsis Event Note - Evaluation Sepsis Screening Result: No Definite Risk - Focused Exam Vital Signs: Vital Signs Temp Pulse Resp BP Pulse Ox 10/18/20 20:14 75 14 100/49 L 88 L 10/18/20 19:40 83 18 118/57 L 93 L 10/18/20 18:21 92 18 128/70 99 10/18/20 17:52 89 18 76/52 L 99 10/18/20 17:40 36.8 C 80 12 121/109 H 100 Problem List Initiated/Reviewed/Updated: Yes Orders Last 24hrs: Active Orders 24 hr Category Date Time Status Admission Status [Patient Status] [ADT] Routine ADT 10/18/20 19:46 Active Antiembolic Devices [RC] PER UNIT ROUTINE Care 10/18/20 20:59 Ordered Bedrest Bedside Commode [RC] ASDIRECTED Care 10/18/20 20:56 Ordered Cardiac Monitoring [RC] . DIRECTED Care 10/18/20 17:55 Active Cardiac Monitoring [RC] CONTINUOUS Care 10/18/20 20:57 Ordered EKG Documentation Completion [RC] STAT Care 10/18/20 17:57 Active Intake and Output [RC] QSHIFT Care 10/18/20 20:57 Ordered Oxygen Therapy [RC] PRN Care 10/18/20 20:56 Ordered Peripheral IV Care [RC] . DIRECTED Care 10/18/20 17:55 Active Pulse Oximetry [RC] CONTINUOUS Care 10/18/20 20:57 Ordered VTE/DVT Education [RC] PER UNIT ROUTINE Care 10/18/20 20:56 Ordered Vent Setting Change [Ventilator Setting Changes] [RC] Care 10/18/20 18:25 Active ROUTINE Vital Signs [RC] Q2HR Care 10/18/20 20:56 Ordered Nothing per Oral Now Diet [DIET] Diet 10/18/20 Breakfast Ordered CULTURE BLOOD [BC] Stat Lab 10/18/20 18:30 Received CULTURE BLOOD [BC] Stat Lab 10/18/20 18:44 Received Ondansetron [Zofran] Med 10/18/20 20:56 Ordered 4 mg IV Q6H PRN Precedex Drip @ 5 MCG/KG/MIN(100ml) Med 10/18/20 21:15 Ordered dexmedeTOMIDine in dextrose 5% [dexmedeTOMIDine in D5W 400 MCG/100 ML] 100 ml IV TITRATE Sodium Chloride 0.9% [Normal Saline] 1,000 ml Med 10/18/20 18:00 Active IV .BOLUS Sodium Chloride 0.9% [Normal Saline] 1,000 ml Med 10/18/20 21:00 Ordered IV ASDIRECTED Sodium Chloride 0.9% [Saline Flush] Med 10/18/20 17:55 Active 10 ml FLUSH ASDIRECTED PRN fentaNYL 2500 MCG in Normal Saline @ 1 MCG/KG/HR (250ml Med 10/18/20 21:15 Ordered ) - 1 VIAL fentaNYL [Sublimaze] 2,500 mcg Sodium Chloride 0.9% [Normal Saline] 200 ml IV TITRATE Blood Culture x2 Reflex Set [OM.PC] Stat Oth 10/18/20 17:58 Ordered Comfort Measures [OM.PC] Routine Oth 10/18/20 19:59 Ordered Peripheral IV Insertion Adult [OM.PC] Stat Oth 10/18/20 17:55 Ordered Sequential Compression Device [OM.PC] Per Unit Routine Oth 10/18/20 20:57 Ordered Resuscitation Status Routine Resus Stat 10/18/20 20:56 Ordered Medication Orders Sodium Chloride (Normal Saline) 1,000 mls @ 1,000 mls/hr IV .BOLUS BINA Last Admin: 10/18/20 18:28 Dose: 1,000 mls/hr Documented by: SUZE Sodium Chloride (Normal Saline) 1,000 mls @ 65 mls/hr IV ASDIRECTED BINA dexmedeTOMIDine in dextrose 5% (Dexmedetomidine In D5w 400 Mcg/100 Ml) 100 mls @ 4,932.825 mls/hr IV TITRATE BINA; Protocol Fentanyl 2,500 mcg/ Sodium (Chloride) 250 mls @ 6.577 mls/hr IV TITRATE BINA; Protocol Ondansetron HCl (Ondansetron 4 Mg/2 Ml Sdv) 4 mg IV Q6H PRN PRN Reason: Nausea/Vomiting Sodium Chloride (Sodium Chloride 0.9% 10 Ml Syringe) 10 ml FLUSH ASDIRECTED PRN PRN Reason: Keep Vein Open Last Admin: 10/18/20 18:28 Dose: 10 ml Documented by: SUZE Assessment/Plan Comment:: Patient is a 80-year-old female with unknown history who was brought to the ER by EMS due to unresponsiveness. Assessment: AMS Acute intracranial hemorrhage Hydrocephalus Acute hypoxic respiratory failure Pneumonia Metastatic pulmonary nodules? Uterine cancer? Vaginal bleeding Hypernatremia Leukocytosis Thrombocytopenia MARIBEL or MARIBEL on CKD, creatinine 0.8 on 01/11/2020 Hypercalcemia Hypermagnesemia Elevation of troponin UTI Plan: As per ER physician Dr. Jesus, all 3 children would like to do comfort care only. I spoke to all 3 children, Dwayne, Kaylin and Kristopher by phone again. I explained pt's condition to them. They all agreed with comfort care only. No blood tests. No imaging tests. No procedures. Given her pain medication and medication for nausea vomiting. No other medications which are not related to comfort care. The goal is to keep her as comfortable as possible. Keep her on ventilator until they get here. Continue ventilator Precedex drip Dilaudid 0.5 mg every 4 hours as needed Zofran 4 mg every 6 hour as needed Glynn catheter Continue ventilator - Mortality Measure Prognosis:: Poor
[2020-10-18] MEDS ORDERED: Sodium Chloride 0.9% 500 ML IV ONE (21:36)
[2020-10-18] MEDS: Sodium Chloride 0.9% 1,000 ML IV SCH (21:37)
[2020-10-18] MEDS ORDERED: HYDROmorphone 0.5 MG/0.5 ML Syringe IVPUSH PRN (21:38)
--- NOTE | 2020-10-18 22:06 | PCM.SN.2 ---
- Free Text/Narrative Note: Her blood pressure dropped to 80+ Called and spoke to son Kristopher who agreed to start her on norepinephrine drip to keep her BP. I explained to Kristopher that she could pass away at any time. Kristopher fully understood this.
[2020-10-18] MEDS: Norepinephrine 4 MG in Dextrose 5% in Water 246 ML IV SCH ×2 (22:11)
[2020-10-19] MEDS: Norepinephrine 4 MG in Dextrose 5% in Water 246 ML IV SCH ×10 (05:30→22:08)
[2020-10-19] MEDS: Sodium Chloride 0.9% 1,000 ML IV SCH ×2 (05:35→21:09)
--- NOTE | 2020-10-19 12:09 | PCM.PN ---
- General Info Date of Service: 10/19/20 Admission Dx/Problem (Free Text): Admission Diagnosis/Problem Admission Diagnosis/Problem Intracranial hemorrhage Subjective Update: Patient is a 80-year-old female with unknown history who was brought to the ER by EMS due to unresponsiveness. Patient maintains unresponsiveness to stimuli including pain stimuli. Pupil mod erately dilated and fixed She is on Levophed to maintain blood pressure On ventilator to maintain breathing - Review of Systems General: Reports: Other (Review of system unable to complete due to unresponsiveness) - Patient Data Vitals - Most Recent: Last Vital Signs Temp 36.3 C 10/19/20 08:00 Pulse 99 10/19/20 06:15 Resp 12 10/19/20 10:00 BP 98/38 L 10/19/20 10:00 Pulse Ox 98 10/19/20 10:52 Weight - Most Recent: 64.41 kg I&O - Last 24 Hours: Intake & Output 10/18/20 10/19/20 10/19/20 22:59 06:59 14:59 Intake Total 950 Output Total 300 855 30 Balance -300 95 -30 Lab Results Last 24 Hours: Laboratory Results - last 24 hr 10/18/20 10/18/20 10/18/20 Range/Units 17:45 17:50 17:50 WBC 17.71 H (3.98-10.04) K/mm3 RBC 4.71 (3.98-5.22) M/mm3 Hgb 14.9 (11.2-15.7) gm/dl Hct 46.0 H (34.1-44.9) % MCV 97.7 H (79.4-94.8) fl MCH 31.6 (25.6-32.2) pg MCHC 32.4 (32.2-35.5) g/dl RDW Std Deviation 49.8 H (36.4-46.3) fL Plt Count 148 L D (182-369) K/mm3 MPV 10.8 (9.4-12.3) fl Neut % (Auto) 83.4 H (34.0-71.1) % Lymph % (Auto) 6.0 L (19.3-51.7) % Winston % (Auto) 10.1 (4.7-12.5) % Eos % (Auto) 0 L (0.7-5.8) Baso % (Auto) 0.1 (0.1-1.2) % Neut # (Auto) 14.78 H (1.56-6.13) K/mm3 Lymph # (Auto) 1.06 L (1.18-3.74) K/mm3 Winston # (Auto) 1.78 H (0.24-0.36) K/mm3 Eos # (Auto) 0.00 L (0.04-0.36) K/mm3 Baso # (Auto) 0.02 (0.01-0.08) K/mm3 Manual Slide Review Abnormal smear PT 12.6 H (9.7-12.0) SECONDS INR 1.18 APTT 25.4 (21.7-31.4) SECONDS Puncture Site ABG pH (7.35-7.45) ABG pCO2 (35.0-45.0) mmHg ABG pO2 (80.0-100.0) mmHg ABG HCO3 (22.0-26.0) meq/L ABG O2 Saturation (96.0-97.0) % ABG Base Excess (-2-2.0) A-a Gradient mmHg O2 Delivery Device FiO2 (21.00-100.00) % Tidal Volume cc PEEP cmH20 Sodium (136-145) mEq/L Potassium (3.5-5.1) mEq/L Chloride (98-107) mEq/L Carbon Dioxide (21-32) mEq/L Anion Gap (5-15) BUN (7-18) mg/dL Creatinine (0.55-1.02) mg/dL Est Cr Clr Drug Dosing Estimated GFR (MDRD) (>60) mL/min BUN/Creatinine Ratio (14-18) Glucose (70-99) mg/dL Lactic Acid (0.4-2.0) mmol/L Calcium (8.5-10.1) mg/dL Magnesium (1.8-2.4) mg/dL Total Bilirubin (0.2-1.0) mg/dL AST (15-37) U/L ALT (14-59) U/L Alkaline Phosphatase (46-116) U/L Creatine Kinase (26-192) U/L Troponin I (0.00-0.056) ng/mL C-Reactive Protein (<1.0) mg/dL Total Protein (6.4-8.2) g/dl Albumin (3.4-5.0) g/dl Globulin gm/dL Albumin/Globulin Ratio (1-2) Lipase (73-393) U/L TSH 3rd Generation (0.358-3.74) uIU/mL Urine Color (Yellow) Urine Appearance (Clear) Urine pH (5.0-8.0) Ur Specific Earling (1.005-1.030) Urine Protein (Negative) Urine Glucose (UA) (Negative) Urine Ketones (Negative) Urine Occult Blood (Negative) Urine Nitrite (Negative) Urine Bilirubin (Negative) Urine Urobilinogen (0.2-1.0) Ur Leukocyte Esterase (Negative) Urine RBC (0-5) /hpf Urine WBC (0-5) /hpf Ur Squamous Epith Cells (0-5) /hpf Urine Bacteria (FEW) /hpf Urine Mucus (FEW) /hpf Urine Opiates Screen (OBEXJD=153) Ur Buprenorphine Scrn (CUTOFF=10) Ur Oxycodone Screen (RGX7AH=816) Urine Methadone Screen (VEVRNC=653) Ur Propoxyphene Screen (TSJYCM=622) Ur Barbiturates Screen (CGFSOI=345) Ur Tricyclics Screen (NSXDOH=044) Ur Phencyclidine Scrn (CUTOFF=25) Ur Amphetamine Screen (IOGNUB=603) U Methamphetamines Scrn (JZZJWB=591) U Benzodiazepines Scrn (BRVKGQ=308) U Cocaine Metab Screen (LAWYPJ=020) U Marijuana (THC) Screen (CUTOFF=50) Ethyl Alcohol (0.00) gm% SARS-CoV-2 RNA (MARYURI) Negative (NEGATIVE) 10/18/20 10/18/20 10/18/20 Range/Units 17:50 17:50 17:50 WBC (3.98-10.04) K/mm3 RBC (3.98-5.22) M/mm3 Hgb (11.2-15.7) gm/dl Hct (34.1-44.9) % MCV (79.4-94.8) fl MCH (25.6-32.2) pg MCHC (32.2-35.5) g/dl RDW Std Deviation (36.4-46.3) fL Plt Count (182-369) K/mm3 MPV (9.4-12.3) fl Neut % (Auto) (34.0-71.1) % Lymph % (Auto) (19.3-51.7) % Winston % (Auto) (4.7-12.5) % Eos % (Auto) (0.7-5.8) Baso % (Auto) (0.1-1.2) % Neut # (Auto) (1.56-6.13) K/mm3 Lymph # (Auto) (1.18-3.74) K/mm3 Winston # (Auto) (0.24-0.36) K/mm3 Eos # (Auto) (0.04-0.36) K/mm3 Baso # (Auto) (0.01-0.08) K/mm3 Manual Slide Review PT (9.7-12.0) SECONDS INR APTT (21.7-31.4) SECONDS Puncture Site ABG pH (7.35-7.45) ABG pCO2 (35.0-45.0) mmHg ABG pO2 (80.0-100.0) mmHg ABG HCO3 (22.0-26.0) meq/L ABG O2 Saturation (96.0-97.0) % ABG Base Excess (-2-2.0) A-a Gradient mmHg O2 Delivery Device FiO2 (21.00-100.00) % Tidal Volume cc PEEP cmH20 Sodium 152 H D (136-145) mEq/L Potassium 4.1 (3.5-5.1) mEq/L Chloride 112 H (98-107) mEq/L Carbon Dioxide 28 (21-32) mEq/L Anion Gap 16.1 H (5-15) BUN 80 H D (7-18) mg/dL Creatinine 1.9 H (0.55-1.02) mg/dL Est Cr Clr Drug Dosing TNP Estimated GFR (MDRD) 26 (>60) mL/min BUN/Creatinine Ratio 42.1 H (14-18) Glucose 115 H (70-99) mg/dL Lactic Acid 2.0 (0.4-2.0) mmol/L Calcium 14.2 H* D (8.5-10.1) mg/dL Magnesium 3.1 H (1.8-2.4) mg/dL Total Bilirubin 0.5 (0.2-1.0) mg/dL AST 29 (15-37) U/L ALT 27 (14-59) U/L Alkaline Phosphatase 88 (46-116) U/L Creatine Kinase 237 H (26-192) U/L Troponin I 0.304 H* (0.00-0.056) ng/mL C-Reactive Protein 6.1 H* (<1.0) mg/dL Total Protein 6.8 (6.4-8.2) g/dl Albumin 3.3 L (3.4-5.0) g/dl Globulin 3.5 gm/dL Albumin/Globulin Ratio 0.9 L (1-2) Lipase 43 L (73-393) U/L TSH 3rd Generation 1.135 (0.358-3.74) uIU/mL Urine Color (Yellow) Urine Appearance (Clear) Urine pH (5.0-8.0) Ur Specific Earling (1.005-1.030) Urine Protein (Negative) Urine Glucose (UA) (Negative) Urine Ketones (Negative) Urine Occult Blood (Negative) Urine Nitrite (Negative) Urine Bilirubin (Negative) Urine Urobilinogen (0.2-1.0) Ur Leukocyte Esterase (Negative) Urine RBC (0-5) /hpf Urine WBC (0-5) /hpf Ur Squamous Epith Cells (0-5) /hpf Urine Bacteria (FEW) /hpf Urine Mucus (FEW) /hpf Urine Opiates Screen Negative (WOPWBU=956) Ur Buprenorphine Scrn Negative (CUTOFF=10) Ur Oxycodone Screen Negative (RQG0KM=999) Urine Methadone Screen Negative (DSNGZX=138) Ur Propoxyphene Screen Negative (EUOYNC=668) Ur Barbiturates Screen Negative (IOFQYW=757) Ur Tricyclics Screen Negative (CPONTY=932) Ur Phencyclidine Scrn Negative (CUTOFF=25) Ur Amphetamine Screen Negative (ENZJRU=054) U Methamphetamines Scrn Negative (MYDBAF=752) U Benzodiazepines Scrn Negative (RNYQEN=568) U Cocaine Metab Screen Negative (BFGNXU=833) U Marijuana (THC) Screen Negative (CUTOFF=50) Ethyl Alcohol 0.00 (0.00) gm% SARS-CoV-2 RNA (MARYURI) (NEGATIVE) 10/18/20 10/18/20 Range/Units 17:58 18:52 WBC (3.98-10.04) K/mm3 RBC (3.98-5.22) M/mm3 Hgb (11.2-15.7) gm/dl Hct (34.1-44.9) % MCV (79.4-94.8) fl MCH (25.6-32.2) pg MCHC (32.2-35.5) g/dl RDW Std Deviation (36.4-46.3) fL Plt Count (182-369) K/mm3 MPV (9.4-12.3) fl Neut % (Auto) (34.0-71.1) % Lymph % (Auto) (19.3-51.7) % Winston % (Auto) (4.7-12.5) % Eos % (Auto) (0.7-5.8) Baso % (Auto) (0.1-1.2) % Neut # (Auto) (1.56-6.13) K/mm3 Lymph # (Auto) (1.18-3.74) K/mm3 Winston # (Auto) (0.24-0.36) K/mm3 Eos # (Auto) (0.04-0.36) K/mm3 Baso # (Auto) (0.01-0.08) K/mm3 Manual Slide Review PT (9.7-12.0) SECONDS INR APTT (21.7-31.4) SECONDS Puncture Site Rt radial ABG pH 7.43 (7.35-7.45) ABG pCO2 44.6 (35.0-45.0) mmHg ABG pO2 55.0 L (80.0-100.0) mmHg ABG HCO3 28.8 H (22.0-26.0) meq/L ABG O2 Saturation 87.9 L (96.0-97.0) % ABG Base Excess 4.2 H (-2-2.0) A-a Gradient 210 mmHg O2 Delivery Device Ventilator FiO2 45.00 (21.00-100.00) % Tidal Volume 450.0 cc PEEP 5.0 cmH20 Sodium (136-145) mEq/L Potassium (3.5-5.1) mEq/L Chloride (98-107) mEq/L Carbon Dioxide (21-32) mEq/L Anion Gap (5-15) BUN (7-18) mg/dL Creatinine (0.55-1.02) mg/dL Est Cr Clr Drug Dosing Estimated GFR (MDRD) (>60) mL/min BUN/Creatinine Ratio (14-18) Glucose (70-99) mg/dL Lactic Acid (0.4-2.0) mmol/L Calcium (8.5-10.1) mg/dL Magnesium (1.8-2.4) mg/dL Total Bilirubin (0.2-1.0) mg/dL AST (15-37) U/L ALT (14-59) U/L Alkaline Phosphatase (46-116) U/L Creatine Kinase (26-192) U/L Troponin I (0.00-0.056) ng/mL C-Reactive Protein (<1.0) mg/dL Total Protein (6.4-8.2) g/dl Albumin (3.4-5.0) g/dl Globulin gm/dL Albumin/Globulin Ratio (1-2) Lipase (73-393) U/L TSH 3rd Generation (0.358-3.74) uIU/mL Urine Color Yellow (Yellow) Urine Appearance Clear (Clear) Urine pH 6.0 (5.0-8.0) Ur Specific Earling > or = 1.030 (1.005-1.030) Urine Protein 1+ H (Negative) Urine Glucose (UA) Negative (Negative) Urine Ketones Negative (Negative) Urine Occult Blood 2+ H (Negative) Urine Nitrite Positive H (Negative) Urine Bilirubin Negative (Negative) Urine Urobilinogen 0.2 (0.2-1.0) Ur Leukocyte Esterase 1+ H (Negative) Urine RBC 5-10 H (0-5) /hpf Urine WBC 20-30 H (0-5) /hpf Ur Squamous Epith Cells 0-5 (0-5) /hpf Urine Bacteria Moderate H (FEW) /hpf Urine Mucus Not seen (FEW) /hpf Urine Opiates Screen (EGYTXR=423) Ur Buprenorphine Scrn (CUTOFF=10) Ur Oxycodone Screen (GYU5CK=806) Urine Methadone Screen (IHUPVJ=116) Ur Propoxyphene Screen (NJTOKF=739) Ur Barbiturates Screen (EIBWRW=787) Ur Tricyclics Screen (MPXRUF=122) Ur Phencyclidine Scrn (CUTOFF=25) Ur Amphetamine Screen (UDVUNR=440) U Methamphetamines Scrn (ONXDZI=003) U Benzodiazepines Scrn (YXGZEM=043) U Cocaine Metab Screen (URORIB=454) U Marijuana (THC) Screen (CUTOFF=50) Ethyl Alcohol (0.00) gm% SARS-CoV-2 RNA (MARYURI) (NEGATIVE) Med Orders - Current: Current Medications Hydromorphone HCl (Hydromorphone 0.5 Mg/0.5 Ml Syringe) 0.5 mg IVPUSH Q4H PRN PRN Reason: Pain Last Admin: 10/19/20 01:20 Dose: 0.5 mg Documented by: Sodium Chloride (Normal Saline) 1,000 mls @ 65 mls/hr IV ASDIRECTED BINA Last Admin: 10/19/20 05:35 Dose: 65 mls/hr Documented by: dexmedeTOMIDine in dextrose 5% (Dexmedetomidine In D5w 400 Mcg/100 Ml) 100 mls @ 4,932.825 mls/hr IV TITRATE BINA; Protocol Last Titration: 10/18/20 21:50 Dose: 0 mcg/kg/min, 1.6 mls/hr Documented by: Norepinephrine Bitartrate 4 mg (/ Dextrose/Water) 250 mls @ 7.5 mls/hr IV TITRATE BINA; Protocol Last Admin: 10/19/20 11:37 Dose: 24 mcg/min, 90 mls/hr Documented by: Vasopressin 100 units/ Sodium (Chloride) 100 mls @ 0.6 mls/hr IV TITRATE BINA; Protocol Last Admin: 10/19/20 10:56 Dose: 0.01 units/min, 0.6 mls/hr Documented by: Ondansetron HCl (Ondansetron 4 Mg/2 Ml Sdv) 4 mg IV Q6H PRN PRN Reason: Nausea/Vomiting Sodium Chloride (Sodium Chloride 0.9% 10 Ml Syringe) 10 ml FLUSH ASDIRECTED PRN PRN Reason: Keep Vein Open Last Admin: 10/18/20 18:28 Dose: 10 ml Documented by: Discontinued Medications Etomidate (Etomidate 2 Mg/Ml 20 Ml Sdv) 25 mg IVPUSH ONETIME ONE Stop: 10/18/20 18:01 Last Admin: 10/18/20 18:27 Dose: 25 mg Documented by: Sodium Chloride (Normal Saline) 1,000 mls @ 1,000 mls/hr IV .BOLUS BINA Last Admin: 10/18/20 18:28 Dose: 1,000 mls/hr Documented by: Ceftriaxone Sodium 2 gm/ (Sodium Chloride) 100 mls @ 200 mls/hr IV ONETIME ONE Stop: 10/18/20 19:35 Last Admin: 10/18/20 19:46 Dose: Not Given Documented by: Fentanyl 2,500 mcg/ Sodium (Chloride) 250 mls @ 6.577 mls/hr IV TITRATE BINA; Protocol Sodium Chloride (Normal Saline) 500 mls @ 200 mls/hr IV .BOLUS ONE Stop: 10/19/20 00:05 Last Admin: 10/18/20 21:38 Dose: 500 mls/hr Documented by: Rocuronium Dupont (Rocuronium 50 Mg/5 Ml Vial) 70 mg IVPUSH ONETIME ONE Stop: 10/18/20 18:04 Last Admin: 10/18/20 18:28 Dose: 70 mg Documented by: - Exam Physical Findings Comments:: General: Other (Unresponsive to pain stimuli) HEENT: Conjunctiva Clear, Pupils Equal (About 5mm, unresponsive to lights) Neck: Trachea Midline. No: JVD Lungs: Clear to Auscultation, Other (On ventilator) Cardiovascular: Regular Rate, Regular Rhythm GI/Abdominal Exam: Normal Bowel Sounds, Soft, Other (Palpable solid mass in the lower abdomen) (Female) Exam: Other (Glynn catheter in place) Extremities: Normal Inspection, Pedal Edema (1+) Skin: Dry, Cool, Ecchymosis Neuro Extensive - Mental Status: Other (unresponsive to stimuli including pain). No: Withdraws to Pain, pupil moderately dilated and fixed Psychiatric: Other (Unable to complete due to unresponsiveness) - Patient Data Lab Results Last 24 hrs: Laboratory Results - last 24 hr 10/18/20 10/18/20 10/18/20 Range/Units 17:45 17:50 17:50 WBC 17.71 H (3.98-10.04) K/mm3 RBC 4.71 (3.98-5.22) M/mm3 Hgb 14.9 (11.2-15.7) gm/dl Hct 46.0 H (34.1-44.9) % MCV 97.7 H (79.4-94.8) fl MCH 31.6 (25.6-32.2) pg MCHC 32.4 (32.2-35.5) g/dl RDW Std Deviation 49.8 H (36.4-46.3) fL Plt Count 148 L D (182-369) K/mm3 MPV 10.8 (9.4-12.3) fl Neut % (Auto) 83.4 H (34.0-71.1) % Lymph % (Auto) 6.0 L (19.3-51.7) % Winston % (Auto) 10.1 (4.7-12.5) % Eos % (Auto) 0 L (0.7-5.8) Baso % (Auto) 0.1 (0.1-1.2) % Neut # (Auto) 14.78 H (1.56-6.13) K/mm3 Lymph # (Auto) 1.06 L (1.18-3.74) K/mm3 Winston # (Auto) 1.78 H (0.24-0.36) K/mm3 Eos # (Auto) 0.00 L (0.04-0.36) K/mm3 Baso # (Auto) 0.02 (0.01-0.08) K/mm3 Manual Slide Review Abnormal smear PT 12.6 H (9.7-12.0) SECONDS INR 1.18 APTT 25.4 (21.7-31.4) SECONDS Puncture Site ABG pH (7.35-7.45) ABG pCO2 (35.0-45.0) mmHg ABG pO2 (80.0-100.0) mmHg ABG HCO3 (22.0-26.0) meq/L ABG O2 Saturation (96.0-97.0) % ABG Base Excess (-2-2.0) A-a Gradient mmHg O2 Delivery Device FiO2 (21.00-100.00) % Tidal Volume cc PEEP cmH20 Sodium (136-145) mEq/L Potassium (3.5-5.1) mEq/L Chloride (98-107) mEq/L Carbon Dioxide (21-32) mEq/L Anion Gap (5-15) BUN (7-18) mg/dL Creatinine (0.55-1.02) mg/dL Est Cr Clr Drug Dosing Estimated GFR (MDRD) (>60) mL/min BUN/Creatinine Ratio (14-18) Glucose (70-99) mg/dL Lactic Acid (0.4-2.0) mmol/L Calcium (8.5-10.1) mg/dL Magnesium (1.8-2.4) mg/dL Total Bilirubin (0.2-1.0) mg/dL AST (15-37) U/L ALT (14-59) U/L Alkaline Phosphatase (46-116) U/L Creatine Kinase (26-192) U/L Troponin I (0.00-0.056) ng/mL C-Reactive Protein (<1.0) mg/dL Total Protein (6.4-8.2) g/dl Albumin (3.4-5.0) g/dl Globulin gm/dL Albumin/Globulin Ratio (1-2) Lipase (73-393) U/L TSH 3rd Generation (0.358-3.74) uIU/mL Urine Color (Yellow) Urine Appearance (Clear) Urine pH (5.0-8.0) Ur Specific Earling (1.005-1.030) Urine Protein (Negative) Urine Glucose (UA) (Negative) Urine Ketones (Negative) Urine Occult Blood (Negative) Urine Nitrite (Negative) Urine Bilirubin (Negative) Urine Urobilinogen (0.2-1.0) Ur Leukocyte Esterase (Negative) Urine RBC (0-5) /hpf Urine WBC (0-5) /hpf Ur Squamous Epith Cells (0-5) /hpf Urine Bacteria (FEW) /hpf Urine Mucus (FEW) /hpf Urine Opiates Screen (ISQNSI=227) Ur Buprenorphine Scrn (CUTOFF=10) Ur Oxycodone Screen (MYH9LV=489) Urine Methadone Screen (OHCVNL=543) Ur Propoxyphene Screen (HHCSAT=774) Ur Barbiturates Screen (HHFPLT=215) Ur Tricyclics Screen (XYWZXI=288) Ur Phencyclidine Scrn (CUTOFF=25) Ur Amphetamine Screen (HNYTKZ=994) U Methamphetamines Scrn (QLBCKA=677) U Benzodiazepines Scrn (XQVKKX=402) U Cocaine Metab Screen (HXDCDN=035) U Marijuana (THC) Screen (CUTOFF=50) Ethyl Alcohol (0.00) gm% SARS-CoV-2 RNA (MARYURI) Negative (NEGATIVE) 10/18/20 10/18/20 10/18/20 Range/Units 17:50 17:50 17:50 WBC (3.98-10.04) K/mm3 RBC (3.98-5.22) M/mm3 Hgb (11.2-15.7) gm/dl Hct (34.1-44.9) % MCV (79.4-94.8) fl MCH (25.6-32.2) pg MCHC (32.2-35.5) g/dl RDW Std Deviation (36.4-46.3) fL Plt Count (182-369) K/mm3 MPV (9.4-12.3) fl Neut % (Auto) (34.0-71.1) % Lymph % (Auto) (19.3-51.7) % Winston % (Auto) (4.7-12.5) % Eos % (Auto) (0.7-5.8) Baso % (Auto) (0.1-1.2) % Neut # (Auto) (1.56-6.13) K/mm3 Lymph # (Auto) (1.18-3.74) K/mm3 Winston # (Auto) (0.24-0.36) K/mm3 Eos # (Auto) (0.04-0.36) K/mm3 Baso # (Auto) (0.01-0.08) K/mm3 Manual Slide Review PT (9.7-12.0) SECONDS INR APTT (21.7-31.4) SECONDS Puncture Site ABG pH (7.35-7.45) ABG pCO2 (35.0-45.0) mmHg ABG pO2 (80.0-100.0) mmHg ABG HCO3 (22.0-26.0) meq/L ABG O2 Saturation (96.0-97.0) % ABG Base Excess (-2-2.0) A-a Gradient mmHg O2 Delivery Device FiO2 (21.00-100.00) % Tidal Volume cc PEEP cmH20 Sodium 152 H D (136-145) mEq/L Potassium 4.1 (3.5-5.1) mEq/L Chloride 112 H (98-107) mEq/L Carbon Dioxide 28 (21-32) mEq/L Anion Gap 16.1 H (5-15) BUN 80 H D (7-18) mg/dL Creatinine 1.9 H (0.55-1.02) mg/dL Est Cr Clr Drug Dosing TNP Estimated GFR (MDRD) 26 (>60) mL/min BUN/Creatinine Ratio 42.1 H (14-18) Glucose 115 H (70-99) mg/dL Lactic Acid 2.0 (0.4-2.0) mmol/L Calcium 14.2 H* D (8.5-10.1) mg/dL Magnesium 3.1 H (1.8-2.4) mg/dL Total Bilirubin 0.5 (0.2-1.0) mg/dL AST 29 (15-37) U/L ALT 27 (14-59) U/L Alkaline Phosphatase 88 (46-116) U/L Creatine Kinase 237 H (26-192) U/L Troponin I 0.304 H* (0.00-0.056) ng/mL C-Reactive Protein 6.1 H* (<1.0) mg/dL Total Protein 6.8 (6.4-8.2) g/dl Albumin 3.3 L (3.4-5.0) g/dl Globulin 3.5 gm/dL Albumin/Globulin Ratio 0.9 L (1-2) Lipase 43 L (73-393) U/L TSH 3rd Generation 1.135 (0.358-3.74) uIU/mL Urine Color (Yellow) Urine Appearance (Clear) Urine pH (5.0-8.0) Ur Specific Earling (1.005-1.030) Urine Protein (Negative) Urine Glucose (UA) (Negative) Urine Ketones (Negative) Urine Occult Blood (Negative) Urine Nitrite (Negative) Urine Bilirubin (Negative) Urine Urobilinogen (0.2-1.0) Ur Leukocyte Esterase (Negative) Urine RBC (0-5) /hpf Urine WBC (0-5) /hpf Ur Squamous Epith Cells (0-5) /hpf Urine Bacteria (FEW) /hpf Urine Mucus (FEW) /hpf Urine Opiates Screen Negative (RQXLZJ=544) Ur Buprenorphine Scrn Negative (CUTOFF=10) Ur Oxycodone Screen Negative (ZIJ7BG=924) Urine Methadone Screen Negative (SKPDYV=532) Ur Propoxyphene Screen Negative (HQJRJI=131) Ur Barbiturates Screen Negative (HVSFAJ=867) Ur Tricyclics Screen Negative (VIWYCA=551) Ur Phencyclidine Scrn Negative (CUTOFF=25) Ur Amphetamine Screen Negative (HYXWUW=927) U Methamphetamines Scrn Negative (TSGWSE=193) U Benzodiazepines Scrn Negative (KPFTJU=658) U Cocaine Metab Screen Negative (AAZZRH=121) U Marijuana (THC) Screen Negative (CUTOFF=50) Ethyl Alcohol 0.00 (0.00) gm% SARS-CoV-2 RNA (MARYURI) (NEGATIVE) 10/18/20 10/18/20 Range/Units 17:58 18:52 WBC (3.98-10.04) K/mm3 RBC (3.98-5.22) M/mm3 Hgb (11.2-15.7) gm/dl Hct (34.1-44.9) % MCV (79.4-94.8) fl MCH (25.6-32.2) pg MCHC (32.2-35.5) g/dl RDW Std Deviation (36.4-46.3) fL Plt Count (182-369) K/mm3 MPV (9.4-12.3) fl Neut % (Auto) (34.0-71.1) % Lymph % (Auto) (19.3-51.7) % Winston % (Auto) (4.7-12.5) % Eos % (Auto) (0.7-5.8) Baso % (Auto) (0.1-1.2) % Neut # (Auto) (1.56-6.13) K/mm3 Lymph # (Auto) (1.18-3.74) K/mm3 Winston # (Auto) (0.24-0.36) K/mm3 Eos # (Auto) (0.04-0.36) K/mm3 Baso # (Auto) (0.01-0.08) K/mm3 Manual Slide Review PT (9.7-12.0) SECONDS INR APTT (21.7-31.4) SECONDS Puncture Site Rt radial ABG pH 7.43 (7.35-7.45) ABG pCO2 44.6 (35.0-45.0) mmHg ABG pO2 55.0 L (80.0-100.0) mmHg ABG HCO3 28.8 H (22.0-26.0) meq/L ABG O2 Saturation 87.9 L (96.0-97.0) % ABG Base Excess 4.2 H (-2-2.0) A-a Gradient 210 mmHg O2 Delivery Device Ventilator FiO2 45.00 (21.00-100.00) % Tidal Volume 450.0 cc PEEP 5.0 cmH20 Sodium (136-145) mEq/L Potassium (3.5-5.1) mEq/L Chloride (98-107) mEq/L Carbon Dioxide (21-32) mEq/L Anion Gap (5-15) BUN (7-18) mg/dL Creatinine (0.55-1.02) mg/dL Est Cr Clr Drug Dosing Estimated GFR (MDRD) (>60) mL/min BUN/Creatinine Ratio (14-18) Glucose (70-99) mg/dL Lactic Acid (0.4-2.0) mmol/L Calcium (8.5-10.1) mg/dL Magnesium (1.8-2.4) mg/dL Total Bilirubin (0.2-1.0) mg/dL AST (15-37) U/L ALT (14-59) U/L Alkaline Phosphatase (46-116) U/L Creatine Kinase (26-192) U/L Troponin I (0.00-0.056) ng/mL C-Reactive Protein (<1.0) mg/dL Total Protein (6.4-8.2) g/dl Albumin (3.4-5.0) g/dl Globulin gm/dL Albumin/Globulin Ratio (1-2) Lipase (73-393) U/L TSH 3rd Generation (0.358-3.74) uIU/mL Urine Color Yellow (Yellow) Urine Appearance Clear (Clear) Urine pH 6.0 (5.0-8.0) Ur Specific Earling > or = 1.030 (1.005-1.030) Urine Protein 1+ H (Negative) Urine Glucose (UA) Negative (Negative) Urine Ketones Negative (Negative) Urine Occult Blood 2+ H (Negative) Urine Nitrite Positive H (Negative) Urine Bilirubin Negative (Negative) Urine Urobilinogen 0.2 (0.2-1.0) Ur Leukocyte Esterase 1+ H (Negative) Urine RBC 5-10 H (0-5) /hpf Urine WBC 20-30 H (0-5) /hpf Ur Squamous Epith Cells 0-5 (0-5) /hpf Urine Bacteria Moderate H (FEW) /hpf Urine Mucus Not seen (FEW) /hpf Urine Opiates Screen (YMCFLV=962) Ur Buprenorphine Scrn (CUTOFF=10) Ur Oxycodone Screen (HNO7XZ=697) Urine Methadone Screen (IYRRYB=005) Ur Propoxyphene Screen (QVUNBW=947) Ur Barbiturates Screen (BLDDUZ=450) Ur Tricyclics Screen (PJKWNT=855) Ur Phencyclidine Scrn (CUTOFF=25) Ur Amphetamine Screen (QZMDGX=691) U Methamphetamines Scrn (UBXBKU=688) U Benzodiazepines Scrn (NSXLYI=352) U Cocaine Metab Screen (MJUTAJ=205) U Marijuana (THC) Screen (CUTOFF=50) Ethyl Alcohol (0.00) gm% SARS-CoV-2 RNA (MARYURI) (NEGATIVE) Result Diagrams: 10/18/20 17:50 10/18/20 17:50 Sepsis Event Note - Evaluation Sepsis Screening Result: Severe Sepsis Risk - Focused Exam Vital Signs: Vital Signs Temp Pulse Resp BP BP Pulse Ox Pulse Ox 10/19/20 10:52 98 10/19/20 10:00 12 98/38 L 98 10/19/20 09:00 12 89/48 L 98 10/19/20 08:23 97 10/19/20 08:00 36.3 C 12 89/48 L 97 10/19/20 07:00 12 85/48 L 96 10/19/20 06:15 99 12 92/48 L 96 10/19/20 06:14 97 10/19/20 06:01 12 97 10/19/20 06:00 36.4 C 12 101/52 L 97 10/19/20 05:45 98 12 102/51 L 95 10/19/20 05:30 95 12 81/44 L 96 10/19/20 05:15 94 12 81/48 L 96 10/19/20 05:12 94 12 81/45 L 97 10/19/20 05:00 36.6 C 12 86/46 L 96 10/19/20 04:49 92 12 83/46 L 97 10/19/20 04:45 92 12 84/48 L 96 10/19/20 04:30 91 12 79/47 L 95 10/19/20 04:20 12 96 10/19/20 04:15 92 12 86/48 L 95 10/19/20 04:00 37.1 C 12 94/50 L 97 10/19/20 03:45 91 12 91/50 L 95 10/19/20 03:30 91 12 93/56 L 95 10/19/20 03:15 89 12 102/51 L 94 L 10/19/20 03:00 36.6 C 12 77/46 L 10/19/20 02:45 84 12 75/45 L 94 L 10/19/20 02:31 83 12 63/39 L 95 10/19/20 02:16 90 12 52/36 L 92 L 10/19/20 02:15 95 12 91 L 10/19/20 02:05 12 90 L 10/19/20 02:00 36.1 C 12 72/36 L 93 L 10/19/20 01:46 89 14 99/50 L 94 L 10/19/20 01:31 59 L 13 102/51 L 97 10/19/20 01:16 74 16 91/48 L 96 10/19/20 01:00 36.1 C 14 91/48 L 98 10/19/20 00:46 81 13 90/49 L 97 10/19/20 00:43 77 13 80/45 L 97 10/19/20 00:16 75 12 84/47 L 97 10/19/20 00:15 12 97 - Problem List Review Problem List Initiated/Reviewed/Updated: Yes - My Orders Last 24 Hours: My Active Orders 10/18/20 20:56 Bedrest Bedside Commode [RC] ASDIRECTED VTE/DVT Education [RC] Vital Signs [RC] Q1HR Ondansetron [Zofran] 4 mg IV Q6H PRN Resuscitation Status Routine 10/18/20 20:57 Cardiac Monitoring [RC] CONTINUOUS Intake and Output [RC] Q2HR Pulse Oximetry [RC] CONTINUOUS Sequential Compression Device [OM.PC] Per Unit Routine 10/18/20 20:59 Antiembolic Devices [RC] 10/18/20 21:00 Ventilator Assessment [RT Ventilator, Adult] [RC] ASDIRECTED Sodium Chloride 0.9% [Normal Saline] 1,000 ml IV ASDIRECTED 10/18/20 21:15 dexmedeTOMIDine in dextrose 5% [dexmedeTOMIDine in D5W 400 MCG/100 ML] 100 ml IV TITRATE 10/18/20 21:38 HYDROmorphone [Dilaudid] 0.5 mg IVPUSH Q4H PRN 10/18/20 21:40 RASS Sedation Scale [RC] ASDIRECTED 10/18/20 21:45 Norepinephrine [Levophed] 4 mg Dextrose 5% in Water 246 ml IV TITRATE 10/18/20 22:00 Communication Order [RC] ASDIRECTED 10/18/20 22:54 Oxygen Therapy [RC] ASDIRECTED 10/19/20 10:15 Vasopressin 100 units Sodium Chloride 0.9% [Normal Saline] 95 ml IV TITRATE - Plan Plan:: Patient is a 80-year-old female with unknown history who was brought to the ER by EMS due to unresponsiveness. Assessment: AMS Acute intracranial hemorrhage Hydrocephalus Acute hypoxic respiratory failure Pneumonia Hypotension Metastatic pulmonary nodules? Uterine cancer? Vaginal bleeding Hypernatremia Leukocytosis Thrombocytopenia MARIBEL or MARIBEL on CKD, creatinine 0.8 on 01/11/2020 Hypercalcemia Hypermagnesemia Elevation of troponin UTI Plan: Continue comfort care only. Maintain patient on ventilator until children get hospital for further decision. Continue ventilator Precedex drip Dilaudid 0.5 mg every 4 hours as needed Zofran 4 mg every 6 hour as needed Glynn catheter Levophed
[2020-10-20] MEDS: Norepinephrine 4 MG in Dextrose 5% in Water 246 ML IV SCH ×6 (06:48→19:08)
[2020-10-20] MEDS: Sodium Chloride 0.9% 1,000 ML IV SCH (12:34)
--- NOTE | 2020-10-20 13:24 | PCM.PN ---
- General Info Date of Service: 10/20/20 Admission Dx/Problem (Free Text): Admission Diagnosis/Problem Admission Diagnosis/Problem Intracranial hemorrhage Subjective Update: Patient is a 80-year-old female with unknown history who was brought to the ER by EMS due to unresponsiveness. Patient maintains unresponsiveness to stimuli including pain stimuli. Pupil mod erately dilated and fixed She is on Levophed to maintain blood pressure On ventilator to maintain breathing - Review of Systems Systems Review Comment:: Review of system unable to complete due to unresponsiveness - Patient Data Vitals - Most Recent: Last Vital Signs Temp 36.1 C 10/20/20 08:00 Pulse 66 10/20/20 06:53 Resp 12 10/20/20 11:00 BP 112/48 L 10/20/20 11:00 Pulse Ox 97 10/20/20 11:08 Weight - Most Recent: 65.544 kg I&O - Last 24 Hours: Intake & Output 10/19/20 10/20/20 10/20/20 22:59 06:59 14:59 Intake Total 1867 1054 Output Total 650 1050 840 Balance 1217 4 -840 Yakov Results Last 24 Hours: Microbiology 10/18/20 18:30 Aerobic Blood Culture - Preliminary Blood - Venous - Lab Draw NO GROWTH AFTER 1 DAY Anaerobic Blood Culture - Preliminary NO GROWTH AFTER 1 DAY 10/18/20 18:44 Aerobic Blood Culture - Preliminary Blood - Venous NO GROWTH AFTER 1 DAY Anaerobic Blood Culture - Preliminary NO GROWTH AFTER 1 DAY Med Orders - Current: Current Medications Hydromorphone HCl (Hydromorphone 0.5 Mg/0.5 Ml Syringe) 0.5 mg IVPUSH Q4H PRN PRN Reason: Pain Last Admin: 10/19/20 01:20 Dose: 0.5 mg Documented by: Sodium Chloride (Normal Saline) 1,000 mls @ 65 mls/hr IV ASDIRECTED BINA Last Admin: 10/20/20 12:34 Dose: 65 mls/hr Documented by: dexmedeTOMIDine in dextrose 5% (Dexmedetomidine In D5w 400 Mcg/100 Ml) 100 mls @ 4,932.825 mls/hr IV TITRATE BINA; Protocol Last Admin: 10/19/20 21:58 Dose: 0 mcg/kg/min, 1.6 mls/hr Documented by: Norepinephrine Bitartrate 4 mg (/ Dextrose/Water) 250 mls @ 7.5 mls/hr IV TITRATE BINA; Protocol Last Titration: 10/20/20 06:51 Dose: 8 mcg/min, 30 mls/hr Documented by: Vasopressin 100 units/ Sodium (Chloride) 100 mls @ 0.6 mls/hr IV TITRATE BINA; Protocol Last Titration: 10/19/20 11:45 Dose: 0 units/min, 0 mls/hr Documented by: Ondansetron HCl (Ondansetron 4 Mg/2 Ml Sdv) 4 mg IV Q6H PRN PRN Reason: Nausea/Vomiting Sodium Chloride (Sodium Chloride 0.9% 10 Ml Syringe) 10 ml FLUSH ASDIRECTED PRN PRN Reason: Keep Vein Open Last Admin: 10/18/20 18:28 Dose: 10 ml Documented by: Discontinued Medications Etomidate (Etomidate 2 Mg/Ml 20 Ml Sdv) 25 mg IVPUSH ONETIME ONE Stop: 10/18/20 18:01 Last Admin: 10/18/20 18:27 Dose: 25 mg Documented by: Sodium Chloride (Normal Saline) 1,000 mls @ 1,000 mls/hr IV .BOLUS BINA Last Admin: 10/18/20 18:28 Dose: 1,000 mls/hr Documented by: Ceftriaxone Sodium 2 gm/ (Sodium Chloride) 100 mls @ 200 mls/hr IV ONETIME ONE Stop: 10/18/20 19:35 Last Admin: 10/18/20 19:46 Dose: Not Given Documented by: Fentanyl 2,500 mcg/ Sodium (Chloride) 250 mls @ 6.577 mls/hr IV TITRATE BINA; Protocol Sodium Chloride (Normal Saline) 500 mls @ 200 mls/hr IV .BOLUS ONE Stop: 10/19/20 00:05 Last Admin: 10/18/20 21:38 Dose: 500 mls/hr Documented by: Rocuronium [place] (Rocuronium 50 Mg/5 Ml Vial) 70 mg IVPUSH ONETIME ONE Stop: 10/18/20 18:04 Last Admin: 10/18/20 18:28 Dose: 70 mg Documented by: - Exam Physical Findings Comments:: General: Other (Unresponsive to pain stimuli) HEENT: Conjunctiva Clear, Pupils Equal (About 5mm, unresponsive to lights) Neck: Trachea Midline. No: JVD Lungs: Clear to Auscultation, Other (On ventilator) Cardiovascular: Regular Rate, Regular Rhythm GI/Abdominal Exam: Normal Bowel Sounds, Soft, Other (Palpable solid mass in the lower abdomen) (Female) Exam: Other (Glynn catheter in place) Extremities: Normal Inspection, Pedal Edema (1+) Skin: Dry, Cool, Ecchymosis Neuro Extensive - Mental Status: Other (unresponsive to stimuli including pain). No: Withdraws to Pain, pupil moderately dilated and fixed Psychiatric: Other (Unable to complete due to unresponsiveness) - Patient Data Result Diagrams: 10/18/20 17:50 10/18/20 17:50 Yakov Results Last 24 hrs: Microbiology 10/18/20 18:30 Aerobic Blood Culture - Preliminary Blood - Venous - Lab Draw NO GROWTH AFTER 1 DAY Anaerobic Blood Culture - Preliminary NO GROWTH AFTER 1 DAY 10/18/20 18:44 Aerobic Blood Culture - Preliminary Blood - Venous NO GROWTH AFTER 1 DAY Anaerobic Blood Culture - Preliminary NO GROWTH AFTER 1 DAY Sepsis Event Note - Evaluation Sepsis Screening Result: No Definite Risk - Focused Exam Vital Signs: Vital Signs Temp Pulse Resp BP BP Pulse Ox Pulse Ox 10/20/20 11:08 97 10/20/20 11:00 12 112/48 L 97 10/20/20 10:00 12 123/50 L 96 10/20/20 09:02 97 10/20/20 09:00 12 104/44 L 96 10/20/20 08:00 36.1 C 12 109/48 L 95 10/20/20 07:00 12 122/60 96 10/20/20 06:53 66 12 119/59 L 94 L 10/20/20 06:31 66 12 130/53 L 95 10/20/20 06:29 70 12 152/82 H 94 L 10/20/20 06:13 63 12 85/45 L 92 L 10/20/20 06:00 12 136/58 L 94 L 93 L 10/20/20 05:46 69 12 136/58 L 94 L 10/20/20 05:16 66 12 94/44 L 95 10/20/20 05:00 12 92/44 L 96 10/20/20 04:46 67 12 90/44 L 96 10/20/20 04:30 12 97 10/20/20 04:16 69 12 98/50 L 98 10/20/20 04:00 36.2 C 12 93/45 L 97 10/20/20 03:46 68 12 88/42 L 98 10/20/20 03:31 68 12 100/48 L 98 10/20/20 03:16 68 12 97/45 L 98 10/20/20 03:00 12 92/46 L 98 10/20/20 02:46 67 12 97/47 L 99 10/20/20 02:45 68 12 99 10/20/20 02:31 99/48 L 10/20/20 02:16 68 12 102/47 L 99 10/20/20 02:01 68 12 103/49 L 99 10/20/20 02:00 12 103/49 L 99 10/20/20 01:56 12 99 - Problem List Review Problem List Initiated/Reviewed/Updated: Yes - My Orders Last 24 Hours: My Active Orders 10/19/20 20:45 Renew/Continue Urinary Catheter [OM.PC] Routine - Plan Plan:: Patient is a 80-year-old female with unknown history who was brought to the ER by EMS due to unresponsiveness. Assessment: AMS Acute intracranial hemorrhage Hydrocephalus Acute hypoxic respiratory failure Pneumonia Hypotension Metastatic pulmonary nodules? Uterine cancer? Vaginal bleeding Hypernatremia Leukocytosis Thrombocytopenia MARIBEL or MARIBEL on CKD, creatinine 0.8 on 01/11/2020 Hypercalcemia Hypermagnesemia Elevation of troponin UTI Plan: Continue comfort care only. Continue ventilator Precedex drip Dilaudid 0.5 mg every 4 hours as needed Zofran 4 mg every 6 hour as needed Glynn catheter Levophed and NS 65ml/hr Maintain patient on ventilator until children get hospital for further decision.
[2020-10-21] MEDS: Norepinephrine 4 MG in Dextrose 5% in Water 246 ML IV SCH ×6 (00:40→11:30)
[2020-10-21] MEDS: Sodium Chloride 0.9% 1,000 ML IV SCH (03:50)
[2020-10-21 08:23] VITALS: PULSE 87
--- NOTE | 2020-10-21 08:49 | PCM.PN ---
- General Info Date of Service: 10/21/20 Admission Dx/Problem (Free Text): Admission Diagnosis/Problem Admission Diagnosis/Problem Intracranial hemorrhage Subjective Update: The patient is a 80-year-old lady who was admitted through the emergency department on October 18, 2020 due to intracranial hemorrhage. The patient is currently intubated. The patient is also nonresponsive. Family members are not present. Functional Status: Reports: Pain Controlled - Review of Systems Systems Review Comment:: Unable to obtain. - Patient Data Vitals - Most Recent: Last Vital Signs Temp 37.1 C 10/21/20 08:15 Pulse 87 10/21/20 08:20 Resp 12 10/21/20 08:20 BP 93/40 L 10/21/20 08:20 Pulse Ox 99 10/21/20 08:20 Weight - Most Recent: 65.771 kg I&O - Last 24 Hours: Intake & Output 10/20/20 10/21/20 10/21/20 22:59 06:59 14:59 Intake Total 1255 1322 Output Total 625 650 75 Balance 630 672 -75 Yakov Results Last 24 Hours: Microbiology 10/18/20 18:30 Aerobic Blood Culture - Preliminary Blood - Venous - Lab Draw NO GROWTH AFTER 2 DAYS Anaerobic Blood Culture - Preliminary NO GROWTH AFTER 2 DAYS 10/18/20 18:44 Aerobic Blood Culture - Preliminary Blood - Venous NO GROWTH AFTER 2 DAYS Anaerobic Blood Culture - Preliminary NO GROWTH AFTER 2 DAYS Med Orders - Current: Current Medications Hydromorphone HCl (Hydromorphone 0.5 Mg/0.5 Ml Syringe) 0.5 mg IVPUSH Q4H PRN PRN Reason: Pain Last Admin: 10/19/20 01:20 Dose: 0.5 mg Documented by: Sodium Chloride (Normal Saline) 1,000 mls @ 65 mls/hr IV ASDIRECTED BINA Last Admin: 10/21/20 03:50 Dose: 65 mls/hr Documented by: dexmedeTOMIDine in dextrose 5% (Dexmedetomidine In D5w 400 Mcg/100 Ml) 100 mls @ 4,932.825 mls/hr IV TITRATE BINA; Protocol Last Titration: 10/21/20 07:43 Dose: 0 mcg/kg/min, 0 mls/hr Documented by: Norepinephrine Bitartrate 4 mg (/ Dextrose/Water) 250 mls @ 7.5 mls/hr IV TITRATE BINA; Protocol Last Titration: 10/21/20 08:47 Dose: 15 mcg/min, 56.25 mls/hr Documented by: Vasopressin 100 units/ Sodium (Chloride) 100 mls @ 0.6 mls/hr IV TITRATE BINA; Protocol Last Titration: 10/19/20 11:45 Dose: 0 units/min, 0 mls/hr Documented by: Ondansetron HCl (Ondansetron 4 Mg/2 Ml Sdv) 4 mg IV Q6H PRN PRN Reason: Nausea/Vomiting Sodium Chloride (Sodium Chloride 0.9% 10 Ml Syringe) 10 ml FLUSH ASDIRECTED PRN PRN Reason: Keep Vein Open Last Admin: 10/18/20 18:28 Dose: 10 ml Documented by: Discontinued Medications Etomidate (Etomidate 2 Mg/Ml 20 Ml Sdv) 25 mg IVPUSH ONETIME ONE Stop: 10/18/20 18:01 Last Admin: 10/18/20 18:27 Dose: 25 mg Documented by: Sodium Chloride (Normal Saline) 1,000 mls @ 1,000 mls/hr IV .BOLUS BINA Last Admin: 10/18/20 18:28 Dose: 1,000 mls/hr Documented by: Ceftriaxone Sodium 2 gm/ (Sodium Chloride) 100 mls @ 200 mls/hr IV ONETIME ONE Stop: 10/18/20 19:35 Last Admin: 10/18/20 19:46 Dose: Not Given Documented by: Fentanyl 2,500 mcg/ Sodium (Chloride) 250 mls @ 6.577 mls/hr IV TITRATE BINA; Protocol Sodium Chloride (Normal Saline) 500 mls @ 200 mls/hr IV .BOLUS ONE Stop: 10/19/20 00:05 Last Admin: 10/18/20 21:38 Dose: 500 mls/hr Documented by: Rocuronium [place] (Rocuronium 50 Mg/5 Ml Vial) 70 mg IVPUSH ONETIME ONE Stop: 10/18/20 18:04 Last Admin: 10/18/20 18:28 Dose: 70 mg Documented by: - Exam Quality Assessment: Supplemental Oxygen (Intubated) General: Obtunded. No: Alert, Oriented HEENT: Pupils Equal. No: Pupils Reactive (Pupils fixed), EOMI (No corneal reflex) Neck: Supple Lungs: Rales (Bibasilar), Other (No cough reflex). No: Normal Respiratory Effort (Intubated) Cardiovascular: Regular Rate, Regular Rhythm, Other (Hypotensive) GI/Abdominal Exam: Non-Tender (No reaction). No: Normal Bowel Sounds, Soft, No Distention Back Exam: No: Normal Inspection Extremities: No Pedal Edema. No: Normal Inspection Neurological: Other (Patient's pupils are fixed and dilated. She is nonresponsive to pain. No corneal reflex.) Psy/Mental Status: Other (Obtunded) - Patient Data Result Diagrams: 10/18/20 17:50 10/18/20 17:50 Yakov Results Last 24 hrs: Microbiology 10/18/20 18:30 Aerobic Blood Culture - Preliminary Blood - Venous - Lab Draw NO GROWTH AFTER 2 DAYS Anaerobic Blood Culture - Preliminary NO GROWTH AFTER 2 DAYS 10/18/20 18:44 Aerobic Blood Culture - Preliminary Blood - Venous NO GROWTH AFTER 2 DAYS Anaerobic Blood Culture - Preliminary NO GROWTH AFTER 2 DAYS Sepsis Event Note - Evaluation Sepsis Screening Result: No Definite Risk - Focused Exam Vital Signs: Vital Signs Temp Pulse Resp BP BP Pulse Ox Pulse Ox 10/21/20 08:20 87 12 93/40 L 99 10/21/20 08:19 87 13 98 10/21/20 08:18 98 10/21/20 08:16 88 12 88/41 L 98 10/21/20 08:15 37.1 C 85 12 88/41 L 98 10/21/20 08:04 88 12 94/40 L 98 10/21/20 08:03 86 12 97 10/21/20 08:01 84 15 85/39 L 98 10/21/20 08:00 37.1 C 85 12 83/40 L 97 10/21/20 07:46 87 12 92/42 L 98 10/21/20 07:45 86 12 98 10/21/20 07:31 86 12 89/41 L 98 10/21/20 07:30 87 12 98 10/21/20 07:24 86 12 86/41 L 98 10/21/20 07:23 84 12 97 10/21/20 07:16 84 12 79/39 L 98 10/21/20 07:15 86 12 94 L 10/21/20 07:06 84 12 83/40 L 98 10/21/20 07:05 85 12 95 10/21/20 07:04 83 12 88/39 L 98 10/21/20 07:03 82 12 97 10/21/20 07:01 82 12 84/41 L 98 10/21/20 07:00 83 12 84/41 L 97 10/21/20 06:46 85 12 99/44 L 98 10/21/20 06:45 84 12 98 10/21/20 06:41 83 12 102/45 L 99 10/21/20 06:18 12 99 10/21/20 06:16 83 12 105/44 L 99 10/21/20 06:00 12 105/44 L 99 10/21/20 05:46 87 14 100/47 L 98 10/21/20 05:30 83 12 99/44 L 99 10/21/20 05:15 82 12 96/46 L 99 10/21/20 05:01 80 12 98 10/21/20 05:00 12 100/44 L 98 10/21/20 04:45 88 12 106/48 L 99 10/21/20 04:30 83 12 95/45 L 99 10/21/20 04:22 12 97 10/21/20 04:15 80 12 91/44 L 99 10/21/20 04:00 36.8 C 82 12 90/42 L 90/42 L 97 10/21/20 03:45 82 12 97/45 L 98 10/21/20 03:30 82 93/43 L 97 10/21/20 03:15 80 12 95/42 L 97 10/21/20 03:00 12 95/42 L 98 10/21/20 02:45 97 12 137/58 L 96 10/21/20 02:30 91 12 119/51 L 95 10/21/20 02:15 84 12 109/48 L 95 10/21/20 02:10 12 10/21/20 02:00 12 116/51 L 98 10/21/20 01:46 116/51 L 10/21/20 01:30 90 12 119/49 L 95 10/21/20 01:25 95 12 105/48 L 99 10/21/20 01:16 84 12 97/43 L 97 10/21/20 01:00 12 98/43 L 97 10/21/20 00:45 105 H 12 102/49 L 94 L 10/21/20 00:31 90 12 101/44 L 96 10/21/20 00:16 91 12 97/46 L 97 10/21/20 00:09 91 12 91/45 L 95 10/21/20 00:00 36.9 C 12 88/42 L 97 10/20/20 23:51 12 97 10/20/20 23:00 12 85/41 L 97 10/20/20 22:46 92 12 92/41 L 97 10/20/20 22:31 95 12 104/45 L 98 10/20/20 22:16 87 12 97/45 L 97 10/20/20 22:00 12 97/45 L 98 10/20/20 21:46 92 12 101/45 L 97 10/20/20 21:31 96 12 94/48 L 97 10/20/20 21:15 109 H 12 96 10/20/20 21:00 12 111/52 L 97 - Problem List & Annotations (1) Intracranial bleed SNOMED Code(s): 5680444 Code(s): I62.9 - NONTRAUMATIC INTRACRANIAL HEMORRHAGE, UNSPECIFIED Status: Acute Priority: High Current Visit: Yes Annotation/Comment:: Not compatible with life. (2) Respiratory failure SNOMED Code(s): 098468489 Code(s): J96.90 - RESPIRATORY FAILURE, UNSP, UNSP W HYPOXIA OR HYPERCAPNIA Status: Acute Priority: High Current Visit: Yes Qualifiers: Chronicity: acute Respiratory failure complication: hypoxia Qualified Code(s): J96.01 - Acute respiratory failure with hypoxia Annotation/Comment:: Intubated - Problem List Review Problem List Initiated/Reviewed/Updated: Yes - Assessment Assessment:: The patient is a 80-year-old lady who apparently had been found down after collapsing for an unknown period of time. The patient has a CT scan which shows large hemorrhage in the fourth ventricle. The patient also has cerebral edema. She is currently intubated and is on comfort measures. Family members are coming from various places. Will discuss end-of-life care with the family members. I suspect that when the patient is off of pressors and and extubated that she will quickly. Overall prognosis is grim. - Plan Plan:: Patient is a 80-year-old female with unknown history who was brought to the ER by EMS due to unresponsiveness. Assessment: AMS Acute intracranial hemorrhage Hydrocephalus Acute hypoxic respiratory failure Pneumonia Hypotension Metastatic pulmonary nodules? Uterine cancer? Vaginal bleeding Hypernatremia Leukocytosis Thrombocytopenia MARIBEL or MARIBEL on CKD, creatinine 0.8 on 01/11/2020 Hypercalcemia Hypermagnesemia Elevation of troponin UTI Plan: Continue comfort care only. Continue ventilator Precedex drip Dilaudid 0.5 mg every 4 hours as needed Zofran 4 mg every 6 hour as needed Glynn catheter Levophed and NS 65ml/hr Maintain patient on ventilator until children get hospital for further decision.
[2020-10-21 13:39] VITALS: BP 0/0
--- NOTE | 2020-10-21 14:25 | PCM.DCSUM1 ---
Discharge Summary - Hospital Course Free Text/Narrative:: The patient was admitted secondary to acute intracranial hemorrhage after welfare check. Diagnosis: Stroke: Yes Modified Pricilla Scale: Modified Morven Scale Score: 6 - Discharge Data Discharge Date: 10/21/20 Discharge Disposition: 20 Condition: - Referral to Home Health Primary Care Physician: PCP None - Discharge Diagnosis/Problem(s) (1) Intracranial bleed SNOMED Code(s): 0039074 ICD Code: I62.9 - NONTRAUMATIC INTRACRANIAL HEMORRHAGE, UNSPECIFIED Status: Acute Priority: High Problem Details: Not compatible with life. (2) Respiratory failure SNOMED Code(s): 798049047 ICD Code: J96.90 - RESPIRATORY FAILURE, UNSP, UNSP W HYPOXIA OR HYPERCAPNIA Status: Acute Priority: High Problem Details: Intubated Qualifiers: Chronicity: acute Respiratory failure complication: hypoxia Qualified Code(s): J96.01 - Acute respiratory failure with hypoxia - Patient Summary/Data Hospital Course: The patient is a 80-year-old lady who was admitted to acute hospitalization in the intensive care unit on October 18, 2020 due to intracranial hemorrhage. The patient had been found down and unresponsive and it is uncertain how long she had been unresponsive. She had an initial Glascow coma score of 3. CT scan of the head showed a large acute hemorrhage within the posterior fossa 3.7 cm in size. This also had compression of the fourth ventricle and hydrocephalus of the lateral and third ventricles. She had a small amount of blood which was descending into the spinal canal. She also had edema from hydrocephalus. Of a side note the patient also had a history of vaginal bleeding and had what ghanshyam eared to be metastatic nodes in her lungs. The patient was also placed in a DO NOT INTUBATE DO NOT RESUSCITATE category along with comfort measures provided only. On October 18, 2020 the patient had a drop in her blood pressure and she had been placed on norepinephrine to keep her MAP between 55 and 60 mmHg. The patient had been retained in hospitalization due to patient's next of kin traveling from distant states. The patient had remained hypotensive on maximum dose of Levophed. I was called to the patient's bedside for family meeting with the patient's sons and daughter. I explained the gravity of the situation and showed the next of kin CT scan and explained the intercerebral hemorrhage. Earlier physical examination of the patient was consistent with cerebral . The patient's family had elected to discontinue pressor support, oxygen and agreed to have patient extubated. The patient was dependent upon respirator and upon extubation the patient promptly went into respiratory arrest at 1257 and continued to desaturate and went into full cardiac arrest and asystole. She was examined and found to be and she was pronounced at 1310 on October 21, 2020. The family was present at time of . - Discharge Plan *COPY OF PRESCRIPTION DRUG MONITORING REPORT IN PATIENT HERMILO: Not Applicable Home Medications: Home Meds . [Unable to Verify Home Med List] 10/18/20 [History] Forms: ED Department Discharge Referrals: PCP,None [Primary Care Provider] - - Discharge Summary/Plan Comment DC Time >30 min.: Yes - Patient Data Vitals - Most Recent: Last Vital Signs Temp 37.1 C 10/21/20 12:30 Pulse 87 10/21/20 08:20 Resp 0 L 10/21/20 13:10 BP 0/0 L 10/21/20 13:10 Pulse Ox 0 L 10/21/20 13:10 Weight - Most Recent: 65.771 kg I&O - Last 24 hours: Intake & Output 10/20/20 10/21/20 10/21/20 22:59 06:59 14:59 Intake Total 1255 1322 Output Total 625 650 250 Balance 630 672 -250 CARLY Results - Last 24 hrs: Microbiology 10/18/20 18:30 Aerobic Blood Culture - Preliminary Blood - Venous - Lab Draw NO GROWTH AFTER 2 DAYS Anaerobic Blood Culture - Preliminary NO GROWTH AFTER 2 DAYS 10/18/20 18:44 Aerobic Blood Culture - Preliminary Blood - Venous NO GROWTH AFTER 2 DAYS Anaerobic Blood Culture - Preliminary NO GROWTH AFTER 2 DAYS Med Orders - Current: Current Medications Hydromorphone HCl (Hydromorphone 0.5 Mg/0.5 Ml Syringe) 0.5 mg IVPUSH Q4H PRN PRN Reason: Pain Last Admin: 10/19/20 01:20 Dose: 0.5 mg Documented by: Sodium Chloride (Normal Saline) 1,000 mls @ 65 mls/hr IV ASDIRECTED BINA Last Admin: 10/21/20 03:50 Dose: 65 mls/hr Documented by: Norepinephrine Bitartrate 4 mg (/ Dextrose/Water) 250 mls @ 7.5 mls/hr IV TITRATE BINA; Protocol Last Admin: 10/21/20 11:30 Dose: 16 mcg/min, 60 mls/hr Documented by: Vasopressin 100 units/ Sodium (Chloride) 100 mls @ 0.6 mls/hr IV TITRATE BINA; Protocol Last Titration: 10/19/20 11:45 Dose: 0 units/min, 0 mls/hr Documented by: Ondansetron HCl (Ondansetron 4 Mg/2 Ml Sdv) 4 mg IV Q6H PRN PRN Reason: Nausea/Vomiting Sodium Chloride (Sodium Chloride 0.9% 10 Ml Syringe) 10 ml FLUSH ASDIRECTED PRN PRN Reason: Keep Vein Open Last Admin: 10/18/20 18:28 Dose: 10 ml Documented by: Discontinued Medications Etomidate (Etomidate 2 Mg/Ml 20 Ml Sdv) 25 mg IVPUSH ONETIME ONE Stop: 10/18/20 18:01 Last Admin: 10/18/20 18:27 Dose: 25 mg Documented by: Sodium Chloride (Normal Saline) 1,000 mls @ 1,000 mls/hr IV .BOLUS BINA Last Admin: 10/18/20 18:28 Dose: 1,000 mls/hr Documented by: Ceftriaxone Sodium 2 gm/ (Sodium Chloride) 100 mls @ 200 mls/hr IV ONETIME ONE Stop: 10/18/20 19:35 Last Admin: 10/18/20 19:46 Dose: Not Given Documented by: dexmedeTOMIDine in dextrose 5% (Dexmedetomidine In D5w 400 Mcg/100 Ml) 100 mls @ 4,932.825 mls/hr IV TITRATE BINA; Protocol Last Titration: 10/21/20 07:43 Dose: 0 mcg/kg/min, 0 mls/hr Documented by: Fentanyl 2,500 mcg/ Sodium (Chloride) 250 mls @ 6.577 mls/hr IV TITRATE BINA; Protocol Sodium Chloride (Normal Saline) 500 mls @ 200 mls/hr IV .BOLUS ONE Stop: 10/19/20 00:05 Last Admin: 10/18/20 21:38 Dose: 500 mls/hr Documented by: Rocuronium [place] (Rocuronium 50 Mg/5 Ml Vial) 70 mg IVPUSH ONETIME ONE Stop: 10/18/20 18:04 Last Admin: 10/18/20 18:28 Dose: 70 mg Documented by: Discharge Operative/Procedures - Procedures Performed Intubation Indication: Respiratory Failure, Airway Protection
== END 2020-10-21 14:25 | disposition expired | DRG 951 ==
LOC: JD.ED 17:36 → JD.ICU 19:55
PROVIDERS: ADMIT Internal Medicine; ATTEND Internal Medicine
PROC: 3E033XZ Introduction of Vasopressor into Peripheral Vein, Percutaneous Approach (ICD-10-PCS; principal; 2020-10-18)
PROC: 0BH17EZ Insertion of Endotracheal Airway into Trachea, Via Natural or Artificial Opening (ICD-10-PCS; 2020-10-18)
PROC: 5A1945Z Respiratory Ventilation, 24-96 Consecutive Hours (ICD-10-PCS; 2020-10-18)
DX: Z51.5 Encounter for palliative care (principal); J96.01 Acute respiratory failure with hypoxia; N85.2 Hypertrophy of uterus; J18.9 Pneumonia, unspecified organism; N30.00 Acute cystitis without hematuria; I62.9 Nontraumatic intracranial hemorrhage, unspecified; G91.9 Hydrocephalus, unspecified; Z20.822 Contact with and (suspected) exposure to COVID-19; R40.2431 Glasgow coma scale score 3-8, in the field [EMT or ambulance]; E87.0 Hyperosmolality and hypernatremia; N17.9 Acute kidney failure, unspecified; N39.0 Urinary tract infection, site not specified; Z66 Do not resuscitate; I95.9 Hypotension, unspecified; I46.9 Cardiac arrest, cause unspecified; H54.7 Unspecified visual loss; Z88.0 Allergy status to penicillin; R91.8 Other nonspecific abnormal finding of lung field; D69.6 Thrombocytopenia, unspecified; N18.9 Chronic kidney disease, unspecified; E83.52 Hypercalcemia; R77.8 Other specified abnormalities of plasma proteins; E83.41 Hypermagnesemia
CPT/HCPCS: 31500; 36415; 36600; 70450; 71045; 71250; 74176; 80053; 80306; 80307; 81001; 82550; 82803; 83605; 83690; 83735; 84443; 84484; 85025; 85610; 85730; 86140; 87040 ×2; 93005; 99285; J3490; J7030; U0002; 93010; 94003; 99223; 99233; 99239; J1170; J7060